=== PATIENT | female | born 1985 | race Caucasian/White ===

== ENCOUNTER 2021-04-05 09:20 | Emergency (ER) | payer OTHER, SELFPAY ==
--- NOTE | 2021-04-05 09:33 | DI.RAD.S_ITS ---
PROCEDURE: XR CHEST 1V INDICATIONS: cough TECHNIQUE: One view of the chest was acquired. COMPARISON: None. FINDINGS: Surgical changes and devices: None. Lungs and pleura: On this semiupright portable chest examination, no large pneumothorax or large pleural effusions are seen. No focal infiltrates are seen. Mediastinum: Mediastinal contours appear normal. Heart size is normal. Bones and chest wall: No suspicious bony lesions. Overlying soft tissues appear unremarkable. IMPRESSION: Portable chest within normal limits. Dictated by: Chris Kingsley M.D. on 04/05/2021 at 8:47 Approved by: Chris Kingsley M.D. on 04/05/2021 at 8:49
--- NOTE | 2021-04-05 09:35 | ED.GENADULT ---
HPI - General Adult General Chief complaint: Upper Respiratory Symptoms Stated complaint: CHEST COLD Time Seen by Provider: 04/05/21 09:26 History of Present Illness HPI narrative: 35-year-old woman with a history of mild intermittent asthma rarely needing an inhaler, history of a stroke-like event with concerns for hypercoagulability 2 years ago presents with a cough that is been present for 2 weeks and over the last 2 days has gotten worse with increasing chest tightness and now become productive. She describes no fevers, body aches, change to taste or smell, vomiting, diarrhea, abdominal pain, dysuria, flank pain, headaches. She is not complaining of nasal discharge sore throat or ear pain. She is concerned that she is developing a bacterial infection after 2 weeks of a viral syndrome. She has not been COVID tested and she is not COVID vaccinated. Related Data Home Medications Medication Instructions Recorded Confirmed [PROBIOTIC] 1 tab PO QDAY #0 09/17/16 biotin 800 mcg tablet 1 tab PO QDAY #0 09/17/16 ketorolac 60 mg/2 mL intramuscular 1 - 2 ml INJ QDAYP PRN #0 09/17/16 solution magnesium oxide 500 mg tablet 1,000 mg PO BID #0 09/17/16 metformin 500 mg tablet 500 mg PO BIDCC #0 09/17/16 (Glucophage) vitamin B complex (B 1 tab PO QDAY #0 09/17/16 Complex-Vitamin B12) zinc sulfate 50 mg zinc (220 mg) 220 mg PO QDAY #0 09/17/16 capsule Previous Rx's Medication Instructions Recorded albuterol sulfate 90 mcg/actuation 1 inh INHALATION QID PRN #6.7 g 04/05/21 aerosol inhaler azithromycin 250 mg tablet See Rx Instructions .ROUTE 04/05/21 .COMPLEX #6 tab Allergies Allergy/AdvReac Type Severity Reaction Status Date / Time tetracycline [TETRACYCLINE] Allergy Unknown Unverified 07/13/17 12:30 Review of Systems Review of Systems Narrative: Remainder of complete review of systems is otherwise unremarkable except for that included in the HPI. Patient History Medical History (Updated 04/05/21 @ 11:49 by Mila Martinez MD) Hypercoagulable state Migraine Mild intermittent asthma Social History Smoking Status: Never smoker Exam Narrative Exam Narrative: General: Healthy appearing, mild cough but Able to give a complete and coherent history. Well-nourished well-developed HEENT: Moist mucous membranes, normal sclera with reactive pupils, Neck: No cervical adenopathy supple Respiratory: Lungs bibasilar rhonchi left greater than right and scattered wheeze in all lung wallace. Full and symmetrical air movement. No accessory muscle use Cardiac: Mild tachycardia but otherwise Regular rate and rhythm no murmurs no bruits Abdomen: Soft, nontender, good bowel tones, no flank pain Skin: Warm and dry, no rashes Neurologic: Grossly neurologically intact with no obvious asymmetries or abnormalities Extremities: No trauma, well perfused Psych: Cooperative, appropriate insight and affect Initial Vital Signs Initial Vital Signs: Vital Signs Temperature 97.2 F L 04/05/21 09:51 Pulse Rate 97 H 04/05/21 09:51 Respiratory Rate 18 04/05/21 09:51 Blood Pressure 123/89 04/05/21 09:51 Pulse Oximetry 97 04/05/21 09:51 Course Orders Ordered: ED Orders 04/05/21 09:33 XR chest 1V Stat 04/05/21 09:50 COVID19 -Nasal swab/Pre-Proc Stat Complete Blood Count AUTO DIFF Stat Comprehensive Metabolic Panel Stat D Dimer Stat Discontinued Medications Albuterol/Ipratropium (Albuterol/Ipratropium 3 Ml Ampul) 3 ml INH NOW ONE Stop: 04/05/21 11:56 Sodium Chloride (Normal Saline 0.9%) 1,000 mls @ 1,000 mls/hr IV BOLUS ONE Stop: 04/05/21 10:32 Last Admin: 04/05/21 09:51 Dose: 1,000 mls/hr Documented by: YASMIN Methylprednisolone (Methylprednisolone 125 Mg/2 Ml Vial) 125 mg IV NOW ONE Stop: 04/05/21 09:34 Last Admin: 04/05/21 09:59 Dose: 125 mg Documented by: YASMIN Vital Signs Vital signs: Vital Signs - 8 hr 04/05/21 09:51 Temperature 97.2 F L Pulse Rate 97 H Respiratory Rate 18 Blood Pressure 123/89 Pulse Oximetry 97 Medical Decision Making Lab Data Result diagrams: 04/05/21 09:50 04/05/21 09:50 Labs: Lab Results 04/05/21 04/05/21 04/05/21 Range/Units 09:50 09:50 09:50 WBC 12.1 H (4.5-11.0) X10^3/uL RBC 4.62 (4.0-5.2) X10^6/uL Hgb 12.3 (12.0-16.0) g/dL Hct 37.9 (36-46) % MCV 82.1 (80-100) fL MCH 26.6 (26-34) PG MCHC 32.3 (30-36) % RDW 16.1 H (11.6-14.8) % Plt Count 543 H (150-400) X10^3/uL Neut % (Auto) 66.2 (50-75) % Lymph % (Auto) 21.7 L (25-40) % [place] % (Auto) 7.0 (3-14) % Eos % (Auto) 4.4 H (2-4) % Baso % (Auto) 0.7 (0-2) % Neut # (Auto) 8000 H (2991-4435) /uL Lymph # (Auto) 2600 (7749-3586) /uL [place] # (Auto) 800 (0-900) /uL Eos # (Auto) 500 H (0-450) /uL Baso # (Auto) 100 (0-100) /uL D-Dimer 338 H (<230) ng/mL Sodium 139 (137-145) mmol/L Potassium 3.6 (3.4-5.1) mmol/L Chloride 103 (98-107) mmol/L Carbon Dioxide 33 H (22-32) mmol/L BUN 8 (7-17) mg/dL Creatinine 0.76 (0.52-1.04) mg/dL Estimated GFR > 60.0 (>60) mL/min BUN/Creatinine Ratio 10.5 (6-22) Glucose 106 H (70-100) mg/dL Calcium 9.2 (8.4-10.2) mg/dL Total Bilirubin 0.5 (0.2-1.3) mg/dL AST 31 (14-36) IU/L ALT 41 H (<35) IU/L Alkaline Phosphatase 113 (38-126) U/L Total Protein 8.2 (6.3-8.2) g/dL Albumin 4.1 (3.5-5.0) g/dL Globulin 4.1 (1.7-4.1) g/dL Albumin/Globulin Ratio 1.0 (1.0-2.8) SARS-CoV-2 (PCR) (Negative) 04/05/21 Range/Units 09:50 WBC (4.5-11.0) X10^3/uL RBC (4.0-5.2) X10^6/uL Hgb (12.0-16.0) g/dL Hct (36-46) % MCV (80-100) fL MCH (26-34) PG MCHC (30-36) % RDW (11.6-14.8) % Plt Count (150-400) X10^3/uL Neut % (Auto) (50-75) % Lymph % (Auto) (25-40) % [place] % (Auto) (3-14) % Eos % (Auto) (2-4) % Baso % (Auto) (0-2) % Neut # (Auto) (3475-3722) /uL Lymph # (Auto) (2601-2020) /uL [place] # (Auto) (0-900) /uL Eos # (Auto) (0-450) /uL Baso # (Auto) (0-100) /uL D-Dimer (<230) ng/mL Sodium (137-145) mmol/L Potassium (3.4-5.1) mmol/L Chloride (98-107) mmol/L Carbon Dioxide (22-32) mmol/L BUN (7-17) mg/dL Creatinine (0.52-1.04) mg/dL Estimated GFR (>60) mL/min BUN/Creatinine Ratio (6-22) Glucose (70-100) mg/dL Calcium (8.4-10.2) mg/dL Total Bilirubin (0.2-1.3) mg/dL AST (14-36) IU/L ALT (<35) IU/L Alkaline Phosphatase (38-126) U/L Total Protein (6.3-8.2) g/dL Albumin (3.5-5.0) g/dL Globulin (1.7-4.1) g/dL Albumin/Globulin Ratio (1.0-2.8) SARS-CoV-2 (PCR) Negative (Negative) Point of Care Testing Test Results Negative Urine Dip Bedside Urine Glucose Negative Bedside Urine Bilirubin - Negative Bedside Urine Ketone - Negative Urine Specific [place] 1.015 Bedside Urine Occult Blood - Negative Bedside Urine pH 6.0 Bedside Urine Protein - Negative Bedside Urine Urobilinogen - Negative Bedside Urine Nitrite - Negative Bedside Urine Leukocytes - Negative Esterase Point of care testing: Point of Care Testing Test Results Negative Urine Dip Bedside Urine Glucose Negative Bedside Urine Bilirubin - Negative Bedside Urine Ketone - Negative Urine Specific [place] 1.015 Bedside Urine Occult Blood - Negative Bedside Urine pH 6.0 Bedside Urine Protein - Negative Bedside Urine Urobilinogen - Negative Bedside Urine Nitrite - Negative Bedside Urine Leukocytes - Negative Esterase Imaging Data Chest x-ray: My Impression: I think she is beginning to develop right lower lobe infiltrate consistent with her clinical presentation and physical exam Radiologist's Impression: FINDINGS:? ? Surgical changes and devices:? None.? ? Lungs and pleura:? On this semiupright portable chest examination, no large pneumothorax or large pleural effusions are seen.? No focal infiltrates are seen.? ? Mediastinum:? Mediastinal contours appear normal.? Heart size is normal.? ? Bones and chest wall:? No suspicious bony lesions.? Overlying soft tissues appear unremarkable.? ? IMPRESSION:? ? Portable chest within normal limits. ? ? ? Dictated by: Chris Kingsley M.D. on 04/05/2021 at 8:47 ? ? [facility] Narrative Medical decision making narrative: 35-year-old woman with 2 weeks of viral symptoms, COVID negative. Now with increasing cough, body aches fevers. Clinical exam suggests a developing right lower lobe pneumonia. She does so with steroids she frequently gets fairly tachycardic. At this point I think her main problem is a developing right lower lobe bacterial pneumonia with mild reactive airway disease. Will refill her albuterol MDI, will place her on azithromycin and she will be safe for home discharge. Her D-dimer was minimally elevated however her heart rate has come down nicely with a L of fluid. We discussed D-dimers and her symptoms. She is starting her menstrual cycle today and that could certainly explain the mild elevation. With shared decision making we opted to not proceed with CT scan of her chest but I clearly went over signs and symptoms of pulmonary embolism encouraged her to return and would have a low threshold for scanning her if she did. Discharge Plan Departure Patient Disposition: Home Clinical Impression: Pneumonia Qualifiers: Pneumonia type: due to unspecified organism Laterality: right Lung location: lower lobe of lung Qualified Code(s): J18.9 - Pneumonia, unspecified organism Instructions: DI for Pneumonia -- Adult Activity Restrictions/Additional Instructions: Thank you for coming in today I think that you are developing a right lower lobe bacterial pneumonia after 2 weeks of having a viral syndrome. You do not have COVID. I suspect the pneumonia is making her reactive airway disease a bit worse. I have given you a dose of steroids in the emergency department with because he you note that it makes you uncomfortable I do not think that you have enough wheezing that we need to continue oral steroids for the time being I am going to give you a prescription for azithromycin. I will refill your albuterol MDI. We discussed your slightly elevated D-dimer. We also briefly reviewed additional signs and symptoms of what a pulmonary embolism can look like. If you have worsening shortness of breath or feel that your heart is pounding or other symptoms please return and I would have a very low threshold for doing a CT scan of your chest at that time. I wish you the best Prescriptions: New azithromycin 250 mg tablet See Rx Instructions .ROUTE .COMPLEX Qty: 6 0RF Rx Instructions: For 250 mg dose pack: take 500 mg today (day 1), then 250 mg for 4 days (days 2-5) albuterol sulfate 90 mcg/actuation HFA aerosol inhaler 1 inh inhalation QID PRN (Reason: shortness of breath or wheezing) Qty: 6.7 1RF No Action magnesium oxide 500 MG tablet 1,000 mg PO BID Qty: 0 0RF metformin [Glucophage] 500 MG tablet 500 mg PO BIDCC Qty: 0 0RF ketorolac 60 MG/2 ML solution 1 - 2 ml INJ QDAYP PRNQty: 0 0RF [PROBIOTIC] 1 tab PO QDAY Qty: 0 0RF biotin 800 MCG tablet 1 tab PO QDAY Qty: 0 0RF vitamin B complex [B Complex-Vitamin B12] 1 EACH tablet 1 tab PO QDAY Qty: 0 0RF zinc sulfate 220 MG capsule 220 mg PO QDAY Qty: 0 0RF
[2021-04-05 09:51] VITALS: BP 123/89; PULSE 97; RESP 18; TEMP 36.2; O2SAT 97; BMI 36.8
[2021-04-05] MEDS: SODIUM CHLORIDE 0.9% 1,000 ML 1000 ML IV (09:51)
[2021-04-05] MEDS: methylPREDNISolone 125 MG/2 ML VIAL IV (09:59)
[2021-04-05 10:06] LABS: Add Manual Diff / Slide Review NO; Basophils Absolute Auto 100 /uL (0-100); Basophils Percent Auto 0.7 % (0-2); Eosinophils Absolute Auto 500 /uL (0-450); Eosinophils Percent Auto 4.4 % (2-4); Hematocrit 37.9 % (36-46); Hemoglobin 12.3 g/dL (12.0-16.0); Lymphocytes Absolute Auto 2600 /uL (1100-4500); Lymphocytes Percent Auto 21.7 % (25-40); Mean Corpuscular HGB Conc 32.3 % (30-36); Mean Corpuscular Hemoglobin 26.6 PG (26-34); Mean Corpuscular Volume 82.1 fL (80-100); Monocytes Absolute Auto 800 /uL (0-900); Neutrophils Absolute Auto 8000 /uL (1500-7000); Neutrophils Percent Auto 66.2 % (50-75); Platelet Count 543 X10^3/uL (150-400); Red Blood Cell Count 4.62 X10^6/uL (4.0-5.2); Red Cell Distribution Width 16.1 % (11.6-14.8); White Blood Cell Count 12.1 X10^3/uL (4.5-11.0)
[2021-04-05 10:20] LABS: Alanine Aminotransferase 41 IU/L (<35); Albumin 4.1 g/dL (3.5-5.0); Alkaline Phosphatase 113 U/L (38-126); Aspartate Aminotransferase 31 IU/L (14-36); BUN Creatinine Ratio 10.5 (6-22); Bilirubin Total 0.5 mg/dL (0.2-1.3); Blood Urea Nitrogen 8 mg/dL (7-17); COVID19 -Nasal RAPID Negative (Negative); Calcium 9.2 mg/dL (8.4-10.2); Carbon Dioxide 33 mmol/L (22-32); Chloride 103 mmol/L (98-107); Estimated Glomerular Filt Rate > 60.0 mL/min (>60); Globulin 4.1 g/dL (1.7-4.1); Glucose 106 mg/dL (70-100); HEMOLYSIS < 15 (0-50); Potassium 3.6 mmol/L (3.4-5.1); Sodium 139 mmol/L (137-145); Total Protein 8.2 g/dL (6.3-8.2)
[2021-04-05 10:23] LABS: D Dimer 338 ng/mL (<230)
[2021-04-05] MEDS: ALBUTEROL/IPRATROPIUM 3 ML AMPUL INH (12:00)
[2021-04-05 12:04] VITALS: PULSE 84; RESP 18; O2SAT 97
[2021-04-05 12:26] VITALS: BP 123/89; PULSE 88; RESP 16; O2SAT 97
== END 2021-04-05 12:30 | disposition home or self-care (01) ==
PROVIDERS: Emergency Provider Emergency Medicine
DX: J18.9 Pneumonia, unspecified organism (principal); Z20.822 Contact with and (suspected) exposure to COVID-19
CPT/HCPCS: 36415; 71045; 80053; 81003; 81025; 85025; 85379; 87635; 94640; 96361; 96374; 99284; C9803; J2930

== ENCOUNTER → 2021-05-12 08:44 | Outpatient (CLI) | payer OTHER, SELFPAY ==
[2021-05-12 09:36] LABS: Add Manual Diff / Slide Review NO; Basophils Absolute Auto 100 /uL (0-100); Basophils Percent Auto 0.9 % (0-2); Eosinophils Absolute Auto 300 /uL (0-450); Eosinophils Percent Auto 5.1 % (2-4); Hematocrit 37.4 % (36-46); Hemoglobin 12.4 g/dL (12.0-16.0); Lymphocytes Absolute Auto 1700 /uL (1100-4500); Mean Corpuscular HGB Conc 33.1 % (30-36); Mean Corpuscular Hemoglobin 27.6 PG (26-34); Mean Corpuscular Volume 83.3 fL (80-100); Monocytes Absolute Auto 400 /uL (0-900); Monocytes Percent Auto 6.2 % (3-14); Neutrophils Absolute Auto 3700 /uL (1500-7000); Neutrophils Percent Auto 60.8 % (50-75); Platelet Count 491 X10^3/uL (150-400); Red Blood Cell Count 4.49 X10^6/uL (4.0-5.2); Red Cell Distribution Width 16.4 % (11.6-14.8); White Blood Cell Count 6.1 X10^3/uL (4.5-11.0)
[2021-05-12 09:43] LABS: Hemoglobin A1C% w Est Avg Glu 5.8 % (4.0-6.0)
[2021-05-12 10:11] LABS: Alanine Aminotransferase 33 IU/L (<35); Albumin 4.1 g/dL (3.5-5.0); Albumin Globulin Ratio 1.1 (1.0-2.8); Alkaline Phosphatase 97 U/L (38-126); Aspartate Aminotransferase 44 IU/L (14-36); BUN Creatinine Ratio 14.1 (6-22); Bilirubin Total 0.3 mg/dL (0.2-1.3); Blood Urea Nitrogen 11 mg/dL (7-17); Calcium 9.2 mg/dL (8.4-10.2); Carbon Dioxide 30 mmol/L (22-32); Chloride 103 mmol/L (98-107); Cholesterol 199 mg/dL (140-199); Estimated Glomerular Filt Rate > 60.0 mL/min (>60); Globulin 3.7 g/dL (1.7-4.1); Glucose 104 mg/dL (70-100); HDL Cholesterol 41 mg/dL (40-60); HEMOLYSIS < 15 (0-50); LDL Cholesterol Calculated 139 mg/dL (<100); Potassium 3.8 mmol/L (3.4-5.1); Sodium 138 mmol/L (137-145); Total Protein 7.8 g/dL (6.3-8.2); Triglycerides 96 mg/dL (35-150)
[2021-05-16 20:41] LABS: Percent Free Testosterone 2.17 % (0.50-2.80); Testosterone Total 18.5 ng/dL (10.0-55.0)
== END ==
PROVIDERS: PCP Family Medicine; Referring Provider Family Medicine; Visit Provider Family Medicine
DX: E28.2 Polycystic ovarian syndrome (principal); F41.9 Anxiety disorder, unspecified; G43.909 Migraine, unspecified, not intractable, without status migrainosus
CPT/HCPCS: 36415; 80053; 80061; 82627; 83036; 84402; 84403; 85025

== ENCOUNTER 2022-05-08 21:25 | Emergency (ER) | payer OTHER, SELFPAY ==
[2022-05-08 21:31] VITALS: BP 129/68; PULSE 111; O2SAT 99
[2022-05-08 21:36] VITALS: BP 129/68; PULSE 105; RESP 18; TEMP 36.6; O2SAT 100; BMI 29.8
--- NOTE | 2022-05-08 21:42 | ED.NAVMDI ---
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 She presents today complaining of at least 36 hours of significant nausea vomiting unable to keep anything down. Feels that she is hot but has not measured a fever. Significant myalgias. Four days ago she started taking ferrous sulfate and has taken a total of 2 pills and is concerned this is what is causing her symptoms. Her symptoms seem much more significant than I would expect with 2 oral iron tablets. Related Data Home Medications Medication Instructions Recorded Confirmed magnesium oxide 500 mg tablet 1,000 mg PO BID ##0 09/17/16 05/07/21 Previous Rx's Medication Instructions Recorded albuterol sulfate 90 mcg/actuation 1 inh inhalation QID PRN shortness 04/05/21 aerosol inhaler of breath or wheezing #6.7 grams escitalopram oxalate 10 mg tablet 10 mg PO DAILY #90 tabs 09/10/21 (Lexapro) semaglutide 0.25 mg or 0.5 mg (2 0.25 mg (0.2 mL) SUBCUT QWEEK #1.5 09/10/21 mg/1.5 mL) subcutaneous pen mL injector (Ozempic) spironolactone 50 mg tablet 50 mg PO BID #90 tabs 09/10/21 ondansetron 4 mg disintegrating 4 mg PO Q8H PRN nausea and 05/09/22 tablet vomiting #10 tabs Allergies Allergy/AdvReac Type Severity Reaction Status Date / Time tetracycline [TETRACYCLINE] Allergy Unknown Hives Verified 05/08/22 21:46 prednisone Allergy Severe Palpitation Uncoded 05/08/22 21:46 s Review of Systems Review of Systems Narrative: Remainder of complete review of systems is otherwise unremarkable except for that included in the HPI. Patient History Medical History Hypercoagulable state Migraine Mild intermittent asthma Social History Smoking Status: Never smoker Smoking Status: Never smoker alcohol intake frequency: 0-2 drinks per day Substance Use Type: does not use Exam Initial Vital Signs Initial Vital Signs: Vital Signs Temperature 98 F 05/08/22 21:36 Pulse Rate 105 H 05/08/22 21:36 Respiratory Rate 18 05/08/22 21:36 Blood Pressure 129/68 05/08/22 21:36 Pulse Oximetry 100 05/08/22 21:36 Oxygen Delivery Method 05/08/22 21:36 General: Appears to feel unwell but in no acute distress. Able to give a complete and coherent history. Well-nourished well-developed HEENT: Dry mucous membranes, normal sclera with reactive pupils, Neck: No cervical adenopathy Respiratory: Lungs are clear to auscultation, no wheezing no rales no rhonchi. Full and symmetrical air movement Cardiac: Regular rate and rhythm no murmurs no bruits Abdomen: Soft, mild diffuse tenderness without rebound or guarding, good bowel tones, no flank pain Skin: Warm and dry, no rashes Neurologic: Grossly neurologically intact with no obvious asymmetries or abnormalities Extremities: No trauma, well perfused Psych: Cooperative, appropriate insight and affect Course Orders Ordered: ED Orders 05/08/22 21:39 Complete Blood Count AUTO DIFF Stat Comprehensive Metabolic Panel Stat 05/08/22 21:44 Stool Culture Stat 05/08/22 23:05 Urinalysis and Microscopic Stat Urine Culture Stat Sodium Chloride (Normal Saline 0.9%) 1,000 mls @ 1,000 mls/hr IV BOLUS ONE Stop: 05/09/22 01:04 Discontinued Medications Bupivacaine HCl (Bupivacaine 0.5% (Pf) 30 Ml Vial) 30 ml INJ INTRA-OP ONE Stop: 05/08/22 22:01 Last Admin: 05/08/22 22:18 Dose: Not Given Documented By: NR Sodium Chloride (Normal Saline 0.9%) 1,000 mls @ 1,000 mls/hr IV BOLUS ONE Stop: 05/08/22 22:59 Last Infusion: 05/08/22 22:59 Dose: 0 mls/hr Documented By: Admin: 05/08/22 22:05 Dose: 1,000 mls/hr Documented By: NR Ketorolac Tromethamine (Ketorolac 30 Mg/Ml Vial) 15 mg IV NOW ONE Stop: 05/09/22 00:17 Ondansetron HCl (Ondansetron 4 Mg/2 Ml Inj) 4 mg IV NOW ONE Stop: 05/08/22 21:44 Last Admin: 05/08/22 22:05 Dose: 4 mg Documented By: JACKI Ondansetron HCl (Ondansetron 4 Mg Odt Prepack) 1 bottle MISC SEEINSTR ONE Stop: 05/09/22 00:06 Vital Signs Vital signs: Vital Signs - 8 hr 05/08/22 21:36 Temperature 98 F Pulse Rate 105 H Respiratory Rate 18 Blood Pressure 129/68 Pulse Oximetry 100 Oxygen Delivery Method Room Air MDM - Nausea/Vomiting/Diarrhea Lab Data 05/08/22 21:39 05/08/22 21:39 Labs: Lab Results 05/08/22 05/08/22 05/08/22 Range/Units 21:39 21:39 23:05 WBC 7.5 (4.5-11.0) X10^3/uL RBC 4.68 (4.0-5.2) X10^6/uL Hgb 13.7 (12.0-16.0) g/dL Hct 40.7 (36-46) % MCV 86.9 (80-100) fL MCH 29.3 (26-34) PG MCHC 33.7 (30-36) % RDW 14.6 (11.6-14.8) % Plt Count 402 H (150-400) X10^3/uL Neut % (Auto) 81.7 H (50-75) % Lymph % (Auto) 10.0 L (25-40) % [place] % (Auto) 6.4 (3-14) % Eos % (Auto) 1.3 L (2-4) % Baso % (Auto) 0.6 (0-2) % Neut # (Auto) 6100 (0464-3095) /uL Lymph # (Auto) 700 L (6557-9920) /uL [place] # (Auto) 500 (0-900) /uL Eos # (Auto) 100 (0-450) /uL Baso # (Auto) 0 (0-100) /uL Sodium 138 (137-145) mmol/L Potassium 3.9 (3.4-5.1) mmol/L Chloride 101 (98-107) mmol/L Carbon Dioxide 25 (22-32) mmol/L BUN 8 (7-17) mg/dL Creatinine 0.83 (0.52-1.04) mg/dL Estimated GFR > 60 (>60) mL/min BUN/Creatinine Ratio 9.6 (6-22) Glucose 106 H (70-100) mg/dL Calcium 8.4 (8.4-10.2) mg/dL Total Bilirubin 0.4 (0.2-1.3) mg/dL AST 30 (14-36) IU/L ALT 27 (<35) IU/L Alkaline Phosphatase 99 (38-126) U/L Total Protein 7.8 (6.3-8.2) g/dL Albumin 4.2 (3.5-5.0) g/dL Globulin 3.6 (1.7-4.1) g/dL Albumin/Globulin Ratio 1.2 (1.0-2.8) Urine Color Yellow Urine Appearance Clear Urine pH 6.0 (4.5-8.0) Ur Specific [place] 1.010 (1.000-1.035) Urine Protein Negative (Negative) Urine Glucose (UA) Negative (Negative) g/dL Urine Ketones 1+ H (NEGATIVE) Urine Occult Blood Negative (Negative) Urine Nitrate Negative (Negative) Urine Bilirubin Negative (NEGATIVE) Urine Urobilinogen 0.2 (0.2) E.U./dL Ur Leukocyte Esterase 1+ H (NEGATIVE) Urine RBC None seen (0-5/HPF) Urine WBC 5-10/hpf H (0-5/HPF) Ur Squamous Epith Cells 10-30 /hpf H (0-5/HPF) Urine Bacteria Moderate (10-30) H (None) Urine Mucus 1+ H (Negative) Ur Culture Indicated? Specimen cultured Point of Care Testing Test Results Negative Urine Dip Bedside Urine Glucose 100 mg/dl Bedside Urine Ketone + 15 Urine Specific [place] 1.015 Bedside Urine Occult Blood - Negative Bedside Urine pH 6.0 Bedside Urine Protein - Negative Bedside Urine Urobilinogen - Negative Bedside Urine Nitrite - Negative Bedside Urine Leukocytes - Negative Esterase ECG Data Interpretation: Sinus tachycardia 111 Normal intervals, normal axis No acute ischemic changes MDM Narrative Medical decision making narrative: CC: Nausea, vomiting, myalgias. This is a new problem uncertain prognosis needs further evaluation Complicating co-morbidities: Recently started iron supplementation Corroborating data: Data collected from: patient, Medical records reviewed: Oncology notes, gynecology in primary care notes are all reviewed Differential considered: Viral syndrome, adverse reaction to medicine, bowel obstruction Exam documented above, pertinent findings include: Fairly benign exam with mild abdominal tenderness from vomiting Lab Test results independently reviewed as above. Pertinent findings: CBC is unremarkable with the exception of platelet count at 402 Chemistries are unremarkable Treatments: IV fluids, parenteral ondansetron, toradol Re-evaluations: 1209am patient's heart rate still remains somewhat elevated, she continues to complain of myalgias and arthralgias but notes the nausea is better and is willing to try some tawanda kathy. As she still remains tachycardic but afebrile will give her a 2 L of fluid. Will try adding some Toradol and see if this helps with the achiness. Discussion: 36-year-old woman who presents with nausea, vomiting, body aches and myalgias had been concerned that was due to recently started ferrous sulfate. Symptoms are far more consistent with a viral etiology. Nausea has been controlled she is able to keep liquids down at this point. She is been rehydrated and is feeling marginally better but continues to have significant arthralgias and myalgias. There is no evidence of bacterial infection, intra-abdominal obstruction or abscess. I am not concerned for pulmonary embolism. We discussed viral syndromes recommended ibuprofen and Tylenol for pain control continuing to stay well hydrated and returning if symptoms worsen. Disposition: see below, along with detailed discharge instructions that have been reviewed with patient as well as indications for ED re-evaluation and additional outpatient follow up Discharge Plan Departure Patient Disposition: Home Clinical Impression: Dehydration, Acute viral syndrome Nausea & vomiting Qualifiers: Vomiting type: unspecified Qualified Code(s): R11.2 - Nausea with vomiting, unspecified Instructions: DI for Viral Syndrome Activity Restrictions/Additional Instructions: Thank you for coming in today Your lab work is quite reassuring, you have responded nicely to 2 L of fluid as well as nausea medicine. I am not finding any evidence for a bacterial infection. I do not that think this is related to the recent iron tablets that you have started. Your urine did show some mild abnormalities but I suspect the culture will be negative. If your urine does grow and show a bladder infection, we will give you a call to start antibiotics. Using 400 mg of ibuprofen (2 [id number] pills) and 1 Tylenol every 6 hours can be very helpful in controlling pain. Please make sure you stay as hydrated as possible. I have given you a prescription for ondansetron/Zofran to use for nausea if the nausea does recur. The Zofran prescription was electronically transmitted to [facility] [place] in [place] If you find that you are getting worse or develop any new symptoms, please feel free to return to the emergency department for further evaluation. Prescriptions: New ondansetron 4 mg tablet,disintegrating 4 mg PO Q8H PRN (Reason: nausea and vomiting) Qty: 10 0RF No Action magnesium oxide 500 MG tablet 1,000 mg PO BID Qty: 0 escitalopram oxalate [Lexapro] 10 mg tablet 10 mg PO DAILY Qty: 90 0RF Ozempic 0.25 mg or 0.5 mg(2 mg/1.5 mL) pen injector 0.25 mg SUBCUT QWEEK Qty: 1.5 0RF Rx Instructions: pt uses a compound pharmacy and has an injection schedule. spironolactone 50 mg tablet 50 mg PO BID Qty: 90 3RF albuterol sulfate 90 mcg/actuation HFA aerosol inhaler 1 inh inhalation QID PRN (Reason: shortness of breath or wheezing) Qty: 6.7 1RF Referrals: Liu Paz MD [Primary Care Provider] - Stand Alone Forms: Patient Portal/API
[2022-05-08 21:55] LABS: Add Manual Diff / Slide Review NO; Basophils Absolute Auto 0 /uL (0-100); Basophils Percent Auto 0.6 % (0-2); Eosinophils Absolute Auto 100 /uL (0-450); Eosinophils Percent Auto 1.3 % (2-4); Hematocrit 40.7 % (36-46); Hemoglobin 13.7 g/dL (12.0-16.0); Lymphocytes Absolute Auto 700 /uL (1100-4500); Mean Corpuscular HGB Conc 33.7 % (30-36); Mean Corpuscular Hemoglobin 29.3 PG (26-34); Mean Corpuscular Volume 86.9 fL (80-100); Monocytes Absolute Auto 500 /uL (0-900); Monocytes Percent Auto 6.4 % (3-14); Neutrophils Absolute Auto 6100 /uL (1500-7000); Neutrophils Percent Auto 81.7 % (50-75); Platelet Count 402 X10^3/uL (150-400); Red Blood Cell Count 4.68 X10^6/uL (4.0-5.2); Red Cell Distribution Width 14.6 % (11.6-14.8); White Blood Cell Count 7.5 X10^3/uL (4.5-11.0)
[2022-05-08 22:00] VITALS: PULSE 116; RESP 17; O2SAT 94
[2022-05-08 22:02] LABS: Alanine Aminotransferase 27 IU/L (<35); Albumin 4.2 g/dL (3.5-5.0); Albumin Globulin Ratio 1.2 (1.0-2.8); Alkaline Phosphatase 99 U/L (38-126); Aspartate Aminotransferase 30 IU/L (14-36); BUN Creatinine Ratio 9.6 (6-22); Bilirubin Total 0.4 mg/dL (0.2-1.3); Blood Urea Nitrogen 8 mg/dL (7-17); Calcium 8.4 mg/dL (8.4-10.2); Carbon Dioxide 25 mmol/L (22-32); Chloride 101 mmol/L (98-107); Estimated Glomerular Filt Rate > 60 mL/min (>60); Globulin 3.6 g/dL (1.7-4.1); Glucose 106 mg/dL (70-100); HEMOLYSIS < 15 (0-50); Potassium 3.9 mmol/L (3.4-5.1); Sodium 138 mmol/L (137-145); Total Protein 7.8 g/dL (6.3-8.2)
[2022-05-08] MEDS: SODIUM CHLORIDE 0.9% 1,000 ML 1000 ML IV (22:05)
[2022-05-08] MEDS: ONDANSETRON 4 MG/2 ML INJ IV (22:05)
[2022-05-08 22:30] VITALS: PULSE 100; RESP 19; O2SAT 100
[2022-05-08 23:00] VITALS: PULSE 100; RESP 15; O2SAT 100
--- NOTE | 2022-05-08 23:16 | PC.NURSE ---
pt states she had lab work 4 days ago and was told her iron level is low and if she has any symptoms or is unable to keep her new iron pills down, she needs to come into the hospital. pt states 36hr ago, she started throwing up.
[2022-05-08 23:23] LABS: Appearance Urine UA CLEAR; Bilirubin Urine UA NEGATIVE (NEGATIVE); Color Urine UA YELLOW; Glucose Urine UA NEGATIVE (Negative); Ketones Urine UA 1+ (NEGATIVE); Leukocyte Esterase Urine UA 1+ (NEGATIVE); Nitrite Urine UA NEGATIVE (Negative); Occult Blood Urine UA NEGATIVE (Negative); Protein Urine UA NEGATIVE (Negative); Urobilinogen Urine UA 0.2 E.U./dL (0.2)
[2022-05-08 23:30] VITALS: PULSE 100; RESP 15; O2SAT 100
[2022-05-08 23:30] LABS: Bacteria Urine Moderate (10-30); RBC Urine None Seen (0-5/HPF); Squamous Epithelial Cell Urine 10-30 /HPF (0-5/HPF); WBC Urine 5-10/HPF (0-5/HPF)
[2022-05-08 23:31] LABS: Culture Indicated Urine Specimen Cultured; Mucus Urine 1+ (Negative)
[2022-05-09] VITALS: PULSE 108; RESP 15; O2SAT 98
[2022-05-09 00:30] VITALS: PULSE 99; RESP 13; O2SAT 99
[2022-05-09 00:38] VITALS: BP 113/71; PULSE 100; RESP 19; O2SAT 100
[2022-05-09] MEDS: SODIUM CHLORIDE 0.9% 1,000 ML 1000 ML IV (00:42)
[2022-05-09] MEDS: KETOROLAC 30 MG/ML VIAL 15 MG IV (00:42)
[2022-05-09] MEDS: ONDANSETRON 4 MG ODT PREPACK 1 BOTTLE MISC (00:42)
[2022-05-09 01:00] VITALS: PULSE 96; RESP 19; O2SAT 98
[2022-05-09 01:30] VITALS: PULSE 93; RESP 18; O2SAT 97
[2022-05-09 02:00] VITALS: BP 113/71; PULSE 91; RESP 15; O2SAT 95
== END 2022-05-09 02:12 | disposition home or self-care (01) ==
PROVIDERS: Emergency Provider Emergency Medicine; PCP Family Medicine
DX: E86.0 Dehydration (principal); R11.2 Nausea with vomiting, unspecified; B34.9 Viral infection, unspecified
CPT/HCPCS: 36415; 80053; 81001; 81003; 81025; 85025; 87086; 93005; 93010; 96361; 96374; 96375; 99284; J1885; J2405

== ENCOUNTER → 2022-11-25 11:43 | Outpatient (CLI) | payer OTHER, SELFPAY ==
[2022-11-25 13:03] LABS: Glucose 88 mg/dL (70-100)
--- NOTE | 2022-11-25 13:16 | DI.MRI.S_ITS ---
PROCEDURE: MR HEAD/BRAIN WO CON INDICATIONS: Residual deficits from CVA and chronic headache TECHNIQUE: Noncontrast axial T1 spin echo, axial T2 fast spin echo, sagittal and axial FLAIR, coronal T2 fast spin echo, axial gradient echo, axial diffusion and ADC through the brain. COMPARISON: None. FINDINGS: Image quality: Excellent. CSF Spaces: Basal cisterns are patent. No extra-axial fluid collections. Ventricles are normal in size and shape. Brain: No intracranial masses or hemorrhage. Jamison/white matter interface is normal. Brainstem appears normal. Diffusion-weighted images demonstrate no acute ischemic insult. No prior territorial infarct can be seen. Normal intravascular flow voids are present. Skull and face: Calvarium has normal marrow signal. Orbits appear normal. Sinuses: Sinuses and mastoids are clear. IMPRESSION: No prior territorial infarct can be seen. No findings of acute or subacute infarction can be seen. Dictated by: Chris Kingsley M.D. on 11/25/2022 at 13:44 Approved by: Chris Kingsley M.D. on 11/25/2022 at 13:45
[2022-11-25 14:23] LABS: Appearance Urine UA CLEAR; Bilirubin Urine UA NEGATIVE (NEGATIVE); Color Urine UA YELLOW; Glucose Urine UA NEGATIVE (Negative); Ketones Urine UA NEGATIVE (NEGATIVE); Leukocyte Esterase Urine UA NEGATIVE (NEGATIVE); Nitrite Urine UA NEGATIVE (Negative); Occult Blood Urine UA NEGATIVE (Negative); Protein Urine UA NEGATIVE (Negative); Specific Gravity Urine UA 1.015 (1.000-1.035)
[2022-11-25 14:35] LABS: pH Urine UA 7.5 (4.5-8.0)
[2022-11-25 14:38] LABS: Bacteria Urine Moderate (10-30); Culture Indicated Urine Specimen Cultured; RBC Urine 0-1/HPF (0-5/HPF); Squamous Epithelial Cell Urine 5-10 /HPF (0-5/HPF); WBC Urine 1-5/HPF (0-5/HPF)
[2022-11-25 15:25] LABS: Creatinine Urine Random 260.6 mg/dL
[2022-11-25 15:29] LABS: Microalbumi Creatinin Ratio Ur 2.6 ug/mg CR (<30); Microalbumin Urine Random 0.7 mg/dL (0-1.6)
[2022-11-25 16:23] LABS: HIV 1 & 2 Ab/Ag 4th Gen Combo NEGATIVE (NEGATIVE); Hep C Virus Ab w/Reflex Quant NEGATIVE s/c (NEGATIVE)
== END ==
PROVIDERS: Family Provider Family Medicine; PCP Family Medicine; Referring Provider Family Medicine; Visit Provider Family Medicine
DX: G43.909 Migraine, unspecified, not intractable, without status migrainosus (principal); I69.30 Unspecified sequelae of cerebral infarction; E11.9 Type 2 diabetes mellitus without complications; E88.81 Metabolic syndrome and other insulin resistance; R03.0 Elevated blood-pressure reading, without diagnosis of hypertension; Z11.3 Encounter for screening for infections with a predominantly sexual mode of transmission
CPT/HCPCS: 36415; 70551; 81001; 82043; 82570; 82947; 86803; 87086; 87389

== ENCOUNTER 2022-12-16 10:45 | Outpatient (RCR) | payer OTHER, SELFPAY ==
--- NOTE | 2022-10-28 12:10 | PT.OIE ---
Current Diagnoses Unspecified sequelae of cerebral infarction (10/28/22) Past Medical History (Last Updated 07/07/22 @ 10:33 by Liu Paz MD) Adenomyosis Hypercoagulable state Insulin resistance Migraine Mild intermittent asthma Past Surgical History (Last Updated 07/07/22 @ 10:33 by Liu Paz MD) H/O: hysterectomy Visit Care Team Role Provider Type Liu Paz MD Attending Provider Physician Family Provider Primary Care Provider Referring Provider Specialty: Family Practice Address: [address] [place] [address], [facility] Email: [email or web address] Physical Therapy Initial Evaluation PT-OP-A Visit Information Start: 10/28/22 11:05 Freq: Status: Active Protocol: Document 10/28/22 11:12 ED (Rec: 10/28/22 12:10 ED [id number]) Out-Patient Physical Therapy Visit Information Visit Information Visit Type Initial Evaluation Visit Note 0/12 (only allowed 12 visits) Visit Start Time 11:30 Visit Stop Time 12:15 Total Visit Minutes 45 Visit Number 1 Number of CLINICAL DIETICIAN Visits 0 Evaluation Information Evaluation Date 10/28/22 PT-OP-B Current Condition Start: 10/28/22 11:05 Freq: Status: Active Protocol: Document 10/28/22 11:12 ED (Rec: 10/28/22 12:10 ED [id number]) Current Condition History of Current Condition Current Complaints poor motor planning History of Current Condition Pt states that she had a stroke in 2019 and notes that there is a delay in what she wants to do and then the motor firing for it to actually occur. She states it was a R side CVA but she had R sided deficits as opposed to L sided deficits. Additionally, she states that her balance is terrible. She states that she falls a lot and she sways when she stands; she tends to stand with a wide Alicia when standing. She denies having any physical therapy after her CVA. She states she used to run but no longer can. She has aspirations of returning to running. She has a physioball and tennis balls at home. She states that her R foot is the most problematic; she notices poor motor planning for her R LE especially on stairs. She states she walks about 30-60 minutes/day. Treatment Goals Patient/Caregiver Goals Improve coordination and get back to running (5k by next year) PT-OP-C Subjective Start: 10/28/22 11:05 Freq: Status: Active Protocol: Document 10/28/22 11:12 ED (Rec: 10/28/22 12:10 ED [id number]) OP-PT Pain Assessment Comments Pain Comments denies requiring PT for pain. States she doesn't have much pain during day to day activities PT-OP-D Balance Start: 10/28/22 11:05 Freq: Status: Active Protocol: Document 10/28/22 11:12 ED (Rec: 10/28/22 12:10 ED [id number]) Balance Tests Single Limb Standing Single Limb- Right <10 seconds Single Limb- Left >10 seconds PT-OP-E Functional Tests Start: 10/28/22 11:05 Freq: Status: Active Protocol: Document 10/28/22 11:12 ED (Rec: 10/28/22 12:10 ED [id number]) Functional Tests 30 Second Sit to Stand Test Score 14 Comments favored L side Single Leg Squat Test Comment unable to perform single leg squat to/from table for R LE PT-OP-T Assessment and Plan Start: 10/28/22 11:05 Freq: Status: Active Protocol: Document 10/28/22 11:12 ED (Rec: 10/28/22 12:10 ED [id number]) Physical Therapy Assessment Rehab Potential Rehabilitation Potential Good Evaluation Complexity Number of Personal Factors/Comorbidities 1-2 Number of Body Systems Impaired 3 Clinical Presentation at Evaluation Stable Impairments Impairments Activity Tolerance,Balance, Coordination,Functional Mobility,Strength Goals Four Impairment cardio Short Term Goal (STG) Pt will be able to walk on TM at >10% incline for 10 minutes . STG Duration 2 weeks Group Home Goal (LTG) Pt will be able to slow jog for 10 minutes comfortably. LTG Duration 6 weeks Three Impairment impact activities Short Term Goal (STG) Pt will be able to perform pogos for 30 seconds on both legs comfortably. STG Duration 2 weeks. Tuna Purse Seiner Goal (LTG) Pt will be able to perform drop jump from 6-8'' height comfortably. LTG Duration 6 weeks Two Impairment unilateral strength Short Term Goal (STG) Pt will be able to perform 10 single leg hip bridges for R LE. STG Duration 2 weeks Tuna Purse Seiner Goal (LTG) Pt will be able to perform split squat w/ R LE forward. LTG Duration 6 weeks. One Impairment HEP Short Term Goal (STG) Pt will report performing HEP >4 days/week. STG Duration 2 weeks Tuna Purse Seiner Goal (LTG) Pt will report performing HEP >4 days/week. LTG Duration 6 weeks Assessment Summary Assessment Pt reported to PT w/ complaints of poor motor coordination and R Sided strength deficits after having a CVA in 2019. Pt stated her goal was to be able to run and have better symmetry in regards to muscle strength of L vs R side. Pt able to perform all functional activities well but she did demonstrate increased difficulty when exercises were performed unilaterally such as single leg balance, single leg squat, and single leg hip bridges. PT provided patient initial HEP of: sit<>stands, staggered sit<>stands, hip bridge, single leg hip bridge, heel raise, single leg heel raise, and pogo jumps. Pt able to perform all exercises today comfortably. PT informed patient that she will likely have to continue w/ her exercises as she has a finite amount of PT visits alloted each year. Physical Therapy Plan Frequency and Duration Frequency of Treatment 2x/Week Duration of treatment (weeks) 8 Plan of Care Start Date 10/28/22 Plan of Care End Date 01/26/23 Therapeutic Interventions Therapeutic Interventions Balance Training,Gait Training ,Home Exercise Program,Manual Therapy,Neuromuscular Re- education,Patient/Caregiver Education,Therapeutic Activities,Therapeutic Exercises Modalities Electric Stimulation,Hot Packs Next Visit Focus/Plan Next Note Type Treatment Note Next Visit Plan TM walk, review HEP (squat, staggered squat, bridge, staggered bridge, heel raise, unilateral heel raise, pogos), step up variations, single leg balance
--- NOTE | 2022-10-28 12:10 | PT.OPPOC ---
Physical, Occupational & Speech Therapy At [facility] Current Diagnoses Unspecified sequelae of cerebral infarction (10/28/22) Visit Care Team Role Provider Type Liu Paz MD Attending Provider Physician Family Provider Primary Care Provider Referring Provider Specialty: Family Practice Address: [address] [place] [address], [facility] Email: [email or web address] Plan Of Care PT-OP-T Assessment and Plan Start: 10/28/22 11:05 Freq: Status: Active Protocol: Document 10/28/22 11:12 ED (Rec: 10/28/22 12:10 ED [id number]) Physical Therapy Assessment Rehab Potential Rehabilitation Potential Good Evaluation Complexity Number of Personal Factors/Comorbidities 1-2 Number of Body Systems Impaired 3 Clinical Presentation at Evaluation Stable Impairments Impairments Activity Tolerance,Balance, Coordination,Functional Mobility,Strength Goals Four Impairment cardio Short Term Goal (STG) Pt will be able to walk on TM at >10% incline for 10 minutes . STG Duration 2 weeks Cloth Bolt Bander Goal (LTG) Pt will be able to slow jog for 10 minutes comfortably. LTG Duration 6 weeks Three Impairment impact activities Short Term Goal (STG) Pt will be able to perform pogos for 30 seconds on both legs comfortably. STG Duration 2 weeks. Cloth Bolt Bander Goal (LTG) Pt will be able to perform drop jump from 6-8'' height comfortably. LTG Duration 6 weeks Two Impairment unilateral strength Short Term Goal (STG) Pt will be able to perform 10 single leg hip bridges for R LE. STG Duration 2 weeks [facility] Goal (LTG) Pt will be able to perform split squat w/ R LE forward. LTG Duration 6 weeks. One Impairment HEP Short Term Goal (STG) Pt will report performing HEP >4 days/week. STG Duration 2 weeks Cloth Bolt Bander Goal (LTG) Pt will report performing HEP >4 days/week. LTG Duration 6 weeks Assessment Summary Assessment Pt reported to PT w/ complaints of poor motor coordination and R Sided strength deficits after having a CVA in 2019. Pt stated her goal was to be able to run and have better symmetry in regards to muscle strength of L vs R side. Pt able to perform all functional activities well but she did demonstrate increased difficulty when exercises were performed unilaterally such as single leg balance, single leg squat, and single leg hip bridges. PT provided patient initial HEP of: sit<>stands, staggered sit<>stands, hip bridge, single leg hip bridge, heel raise, single leg heel raise, and pogo jumps. Pt able to perform all exercises today comfortably. PT informed patient that she will likely have to continue w/ her exercises as she has a finite amount of PT visits alloted each year. Physical Therapy Plan Frequency and Duration Frequency of Treatment 2x/Week Duration of treatment (weeks) 8 Plan of Care Start Date 10/28/22 Plan of Care End Date 01/26/23 Therapeutic Interventions Therapeutic Interventions Balance Training,Gait Training ,Home Exercise Program,Manual Therapy,Neuromuscular Re- education,Patient/Caregiver Education,Therapeutic Activities,Therapeutic Exercises Modalities Electric Stimulation,Hot Packs Next Visit Focus/Plan Next Note Type Treatment Note Next Visit Plan TM walk, review HEP (squat, staggered squat, bridge, staggered bridge, heel raise, unilateral heel raise, pogos), step up variations, single leg balance Plan of Care Dates Plan of Care Start Date 10/28/22 Plan of Care End Date 01/26/23 Electronically Signed by: Jose Sterling, PT 10/28/22 1210 If you are in agreement with this Plan of Care, please return a signed and dated copy. I have reviewed this Plan of Care and certify that the skilled therapy services above are required to meet the patient?s needs. Physician Signature Date Printed Name and Credentials Clinical Instructor Signature Printed Name and Credentials
--- NOTE | 2022-11-03 12:18 | PT.OTN ---
Current Diagnoses Unspecified sequelae of cerebral infarction (11/03/22) Physical Therapy Treatment Note PT-OP-A Visit Information Start: 10/28/22 11:05 Freq: Status: Active Protocol: Document 11/03/22 12:12 ED (Rec: 11/03/22 12:18 ED [id number]) Out-Patient Physical Therapy Visit Information Visit Information Visit Type Treatment Note Visit Note 04/15 Visit Start Time 11:30 Visit Stop Time 12:10 Total Visit Minutes 40 Visit Number 2 Number of CAN FILLING ROOM SWEEPER Visits 0 PT-OP-B Current Condition Start: 10/28/22 11:05 Freq: Status: Active Protocol: Document 10/28/22 11:12 ED (Rec: 10/28/22 12:10 ED [id number]) Current Condition History of Current Condition Current Complaints poor motor planning History of Current Condition Pt states that she had a stroke in 2019 and notes that there is a delay in what she wants to do and then the motor firing for it to actually occur. She states it was a R side CVA but she had R sided deficits as opposed to L sided deficits. Additionally, she states that her balance is terrible. She states that she falls a lot and she sways when she stands; she tends to stand with a wide Alicia when standing. She denies having any physical therapy after her CVA. She states she used to run but no longer can. She has aspirations of returning to running. She has a physioball and tennis balls at home. She states that her R foot is the most problematic; she notices poor motor planning for her R LE especially on stairs. She states she walks about 30-60 minutes/day. Treatment Goals Patient/Caregiver Goals Improve coordination and get back to running (5k by next year) PT-OP-C Subjective Start: 10/28/22 11:05 Freq: Status: Active Protocol: Document 11/03/22 12:12 ED (Rec: 11/03/22 12:18 ED [id number]) OP-PT Subjective Patient Comments Patient Comments Pt states that she did her HEP a few times but didn't do much of the staggered STS or pogos. She is looking forward to exercising and improving her functional mobility. PT-OP-D Balance Start: 10/28/22 11:05 Freq: Status: Active Protocol: Document 10/28/22 11:12 ED (Rec: 10/28/22 12:10 ED [id number]) Balance Tests Single Limb Standing Single Limb- Right <10 seconds Single Limb- Left >10 seconds PT-OP-E Functional Tests Start: 10/28/22 11:05 Freq: Status: Active Protocol: Document 10/28/22 11:12 ED (Rec: 10/28/22 12:10 ED [id number]) Functional Tests 30 Second Sit to Stand Test Score 14 Comments favored L side Single Leg Squat Test Comment unable to perform single leg squat to/from table for R LE PT-OP-Q Treatments Start: 10/28/22 11:05 Freq: Status: Active Protocol: Document 11/03/22 12:12 ED (Rec: 11/03/22 12:18 ED [id number]) Cardio Equipment Treadmill Duration (Minutes) 15 Speed 2.0 Incline 1 Other 5' fwd & 5' bkwd; 5' at incline of 8.0 at end Therapeutic Exercises Standing Exercises pogos Reps/Minutes 3x10'' on 10'' off Comments UE support on bar heel raise Standing Exercise Name standing Reps/Minutes 1x20 Therapeutic Activity Therapeutic Activity split squat Reps/Minutes 2x10 Comments 2 foam pads and UE support for balance squat Name squat Reps/Minutes [id number] Comments staggered position for R LE bias Neuro Re-Education Treatment Balance Activities dynamic balance Details fwd/bkwd toe taps Reps/Duration 2x10/leg Comments ~8'' fwd/bkwd taps PT-OP-T Assessment and Plan Start: 10/28/22 11:05 Freq: Status: Active Protocol: Document 11/03/22 12:12 ED (Rec: 11/03/22 12:18 ED [id number]) Physical Therapy Assessment Assessment Summary Assessment Pt tolerated treatment well which included balance, reaction timing, and strengthening activities. Incorporated split squats and pogos today as progressions of her sit<>stands and heel raises that she was given at initial evaluation. Ended session c/ an inclined TM walk (8% incline) to improve work capacity and activity tolerance. Physical Therapy Plan Next Visit Focus/Plan Next Note Type Treatment Note Next Visit Plan TM walk (fwd/bkwd), pogos, bridge (walkouts), split squat , LAQ, TM incline walk HEP (squat, staggered squat, bridge, staggered bridge, heel raise, unilateral heel raise, pogos)
--- NOTE | 2022-11-05 12:15 | PT.OTN ---
Current Diagnoses Unspecified sequelae of cerebral infarction (11/05/22) Physical Therapy Treatment Note PT-OP-A Visit Information Start: 10/28/22 11:05 Freq: Status: Active Protocol: Document 11/05/22 12:10 ED (Rec: 11/05/22 12:15 ED [id number]) Out-Patient Physical Therapy Visit Information Visit Information Visit Type Treatment Note Visit Note 05/16 Visit Start Time 11:30 Visit Stop Time 12:10 Total Visit Minutes 40 Visit Number 3 Number of RIBBON LAP MACHINE TENDER Visits 0 PT-OP-B Current Condition Start: 10/28/22 11:05 Freq: Status: Active Protocol: Document 10/28/22 11:12 ED (Rec: 10/28/22 12:10 ED [id number]) Current Condition History of Current Condition Current Complaints poor motor planning History of Current Condition Pt states that she had a stroke in 2019 and notes that there is a delay in what she wants to do and then the motor firing for it to actually occur. She states it was a R side CVA but she had R sided deficits as opposed to L sided deficits. Additionally, she states that her balance is terrible. She states that she falls a lot and she sways when she stands; she tends to stand with a wide Alicia when standing. She denies having any physical therapy after her CVA. She states she used to run but no longer can. She has aspirations of returning to running. She has a physioball and tennis balls at home. She states that her R foot is the most problematic; she notices poor motor planning for her R LE especially on stairs. She states she walks about 30-60 minutes/day. Treatment Goals Patient/Caregiver Goals Improve coordination and get back to running (5k by next year) PT-OP-C Subjective Start: 10/28/22 11:05 Freq: Status: Active Protocol: Document 11/05/22 12:10 ED (Rec: 11/05/22 12:15 ED [id number]) OP-PT Subjective Patient Comments Patient Comments Pt notes that she was sore in her legs yesterday but is feeling back to normal today. Denies any activity limiting fatigue from increasing her weekly exercise volume. PT-OP-D Balance Start: 10/28/22 11:05 Freq: Status: Active Protocol: Document 10/28/22 11:12 ED (Rec: 10/28/22 12:10 ED [id number]) Balance Tests Single Limb Standing Single Limb- Right <10 seconds Single Limb- Left >10 seconds PT-OP-E Functional Tests Start: 10/28/22 11:05 Freq: Status: Active Protocol: Document 10/28/22 11:12 ED (Rec: 10/28/22 12:10 ED [id number]) Functional Tests 30 Second Sit to Stand Test Score 14 Comments favored L side Single Leg Squat Test Comment unable to perform single leg squat to/from table for R LE PT-OP-Q Treatments Start: 10/28/22 11:05 Freq: Status: Active Protocol: Document 11/05/22 12:10 ED (Rec: 11/05/22 12:15 ED [id number]) Cardio Equipment Bicycle (Upright) Duration (Minutes) 6 Resistance L4 Treadmill Duration (Minutes) 15 Speed 2.0 Incline 9 Other 15' at end for activity tolerance and work capacity Therapeutic Exercises Supine Exercises bridge variations Reps/Minutes 2x10 Comments normal bridge, straight leg bridge, bridge walkouts Standing Exercises fwd hops Reps/Minutes 4x5-8 hops pogos Reps/Minutes 3x10'' on 10'' off Comments UE support on bar Therapeutic Activity Therapeutic Activity step up Reps/Minutes [id number]/leg Comments 18'' box no UE assistance PT-OP-T Assessment and Plan Start: 10/28/22 11:05 Freq: Status: Active Protocol: Document 11/05/22 12:10 ED (Rec: 11/05/22 12:15 ED [id number]) Physical Therapy Assessment Assessment Summary Assessment Pt tolerated treatment well which included balance, reaction timing, and strengthening activities. Incorporated high step ups, pogos, and fwd hops today as progressions of her sit<> stands and heel raises that she was given at initial evaluation. Ended session c/ an inclined TM walk to improve work capacity and activity tolerance. Physical Therapy Plan Frequency and Duration Frequency of Treatment 2x/Week Duration of treatment (weeks) 8 Plan of Care Start Date 10/28/22 Plan of Care End Date 01/26/23 Next Visit Focus/Plan Next Note Type Treatment Note Next Visit Plan bike, bridge variations, pogos , fwd hops/lateral hops, split squat, LAQ, hamstring curl, incline TM
--- NOTE | 2022-11-10 13:37 | PT.OTN ---
Current Diagnoses Unspecified sequelae of cerebral infarction (11/10/22) Physical Therapy Treatment Note PT-OP-A Visit Information Start: 10/28/22 11:05 Freq: Status: Active Protocol: Document 11/10/22 13:32 ED (Rec: 11/10/22 13:37 ED [id number]) Out-Patient Physical Therapy Visit Information Visit Information Visit Type Treatment Note Visit Note 06/13 Visit Start Time 12:45 Visit Stop Time 13:30 Total Visit Minutes 45 Visit Number 4 Number of WILLOW MACHINE TENDER Visits 0 PT-OP-B Current Condition Start: 10/28/22 11:05 Freq: Status: Active Protocol: Document 10/28/22 11:12 ED (Rec: 10/28/22 12:10 ED [id number]) Current Condition History of Current Condition Current Complaints poor motor planning History of Current Condition Pt states that she had a stroke in 2019 and notes that there is a delay in what she wants to do and then the motor firing for it to actually occur. She states it was a R side CVA but she had R sided deficits as opposed to L sided deficits. Additionally, she states that her balance is terrible. She states that she falls a lot and she sways when she stands; she tends to stand with a wide Alicia when standing. She denies having any physical therapy after her CVA. She states she used to run but no longer can. She has aspirations of returning to running. She has a physioball and tennis balls at home. She states that her R foot is the most problematic; she notices poor motor planning for her R LE especially on stairs. She states she walks about 30-60 minutes/day. Treatment Goals Patient/Caregiver Goals Improve coordination and get back to running (5k by next year) PT-OP-C Subjective Start: 10/28/22 11:05 Freq: Status: Active Protocol: Document 11/10/22 13:32 ED (Rec: 11/10/22 13:37 ED [id number]) OP-PT Subjective Patient Comments Patient Comments Pt states that she has been feeling pretty good after her PT sessions. Denies any significant pain or soreness afterwards. Is noticing improvements in her balance and strength. PT-OP-D Balance Start: 10/28/22 11:05 Freq: Status: Active Protocol: Document 10/28/22 11:12 ED (Rec: 10/28/22 12:10 ED [id number]) Balance Tests Single Limb Standing Single Limb- Right <10 seconds Single Limb- Left >10 seconds PT-OP-E Functional Tests Start: 10/28/22 11:05 Freq: Status: Active Protocol: Document 10/28/22 11:12 ED (Rec: 10/28/22 12:10 ED [id number]) Functional Tests 30 Second Sit to Stand Test Score 14 Comments favored L side Single Leg Squat Test Comment unable to perform single leg squat to/from table for R LE PT-OP-Q Treatments Start: 10/28/22 11:05 Freq: Status: Active Protocol: Document 11/10/22 13:32 ED (Rec: 11/10/22 13:37 ED [id number]) Cardio Equipment Treadmill Duration (Minutes) 15 Speed 2.0 Incline 9 Other 15' at end for activity tolerance and work capacity Therapeutic Exercises Supine Exercises bridge variations Reps/Minutes 2x10 Comments normal bridge, straight leg bridge, bridge walkouts Sitting Exercises hamstring curl Resistance L2-3 Reps/Minutes 2x15 LAQ Resistance L2-3 Reps/Minutes 2x15 Standing Exercises fwd hops Reps/Minutes 4x5-8 hops pogos Reps/Minutes 3x10'' on 10'' off Comments UE support on bar Therapeutic Activity Therapeutic Activity wall squat Reps/Minutes x45 seconds Comments accompanied with heel raises split squat Reps/Minutes 2x10 Comments 1 foam pads and UE support for balance Neuro Re-Education Treatment Balance Activities dynamic balance Details fwd/bkwd toe taps Reps/Duration 2x10/leg Comments ~8'' fwd/bkwd taps PT-OP-T Assessment and Plan Start: 10/28/22 11:05 Freq: Status: Active Protocol: Document 11/10/22 13:32 ED (Rec: 11/10/22 13:37 ED [id number]) Physical Therapy Assessment Assessment Summary Assessment Pt continuing to do well with PT exercises. Pt has incorporated balance and strengthening movements for LEs. PT is slowly progressing exercises so patient is starting to perform more total volume during the sessions.
--- NOTE | 2022-11-18 09:54 | PT.OTN ---
Current Diagnoses Unspecified sequelae of cerebral infarction (11/18/22) Physical Therapy Treatment Note PT-OP-A Visit Information Start: 10/28/22 11:05 Freq: Status: Active Protocol: Document 11/18/22 09:49 ED (Rec: 11/18/22 09:54 ED [id number]) Out-Patient Physical Therapy Visit Information Visit Information Visit Type Treatment Note Visit Note 07/14 Visit Start Time 09:00 Visit Stop Time 09:45 Total Visit Minutes 45 Visit Number 5 Number of CARRIER LOADER Visits 0 PT-OP-B Current Condition Start: 10/28/22 11:05 Freq: Status: Active Protocol: Document 10/28/22 11:12 ED (Rec: 10/28/22 12:10 ED [id number]) Current Condition History of Current Condition Current Complaints poor motor planning History of Current Condition Pt states that she had a stroke in 2019 and notes that there is a delay in what she wants to do and then the motor firing for it to actually occur. She states it was a R side CVA but she had R sided deficits as opposed to L sided deficits. Additionally, she states that her balance is terrible. She states that she falls a lot and she sways when she stands; she tends to stand with a wide Alicia when standing. She denies having any physical therapy after her CVA. She states she used to run but no longer can. She has aspirations of returning to running. She has a physioball and tennis balls at home. She states that her R foot is the most problematic; she notices poor motor planning for her R LE especially on stairs. She states she walks about 30-60 minutes/day. Treatment Goals Patient/Caregiver Goals Improve coordination and get back to running (5k by next year) PT-OP-C Subjective Start: 10/28/22 11:05 Freq: Status: Active Protocol: Document 11/18/22 09:49 ED (Rec: 11/18/22 09:54 ED [id number]) OP-PT Subjective Patient Comments Patient Comments Pt states she has been doing a little bit of the exercises at home. Notes that next week she may be more tired as she is having an iron infusion and that typically makes her a little more fatigued. PT-OP-D Balance Start: 10/28/22 11:05 Freq: Status: Active Protocol: Document 10/28/22 11:12 ED (Rec: 10/28/22 12:10 ED [id number]) Balance Tests Single Limb Standing Single Limb- Right <10 seconds Single Limb- Left >10 seconds PT-OP-E Functional Tests Start: 10/28/22 11:05 Freq: Status: Active Protocol: Document 10/28/22 11:12 ED (Rec: 10/28/22 12:10 ED [id number]) Functional Tests 30 Second Sit to Stand Test Score 14 Comments favored L side Single Leg Squat Test Comment unable to perform single leg squat to/from table for R LE PT-OP-Q Treatments Start: 10/28/22 11:05 Freq: Status: Active Protocol: Document 11/18/22 09:49 ED (Rec: 11/18/22 09:54 ED [id number]) Cardio Equipment Treadmill Duration (Minutes) 10 Speed 2.0 Incline 9 Other 10' at end for activity tolerance and work capacity Therapeutic Exercises Supine Exercises bridge variations Reps/Minutes 2x10 Comments normal bridge, straight leg bridge, bridge walkouts Sitting Exercises LAQ Resistance L2-3 Reps/Minutes 2x15 Standing Exercises pogos Reps/Minutes 3x10'' on 10'' off Comments UE support on bar Therapeutic Activity Therapeutic Activity wall squat Reps/Minutes 3x30 seconds Comments accompanied with heel raises split squat Reps/Minutes 3x6-10 Comments 1 foam pads and UE support for balance PT-OP-T Assessment and Plan Start: 10/28/22 11:05 Freq: Status: Active Protocol: Document 11/18/22 09:49 ED (Rec: 11/18/22 09:54 ED [id number]) Physical Therapy Assessment Goals Four Impairment cardio Short Term Goal (STG) Pt will be able to walk on TM at >10% incline for 10 minutes . STG Duration 2 weeks Custodial Goal (LTG) Pt will be able to slow jog for 10 minutes comfortably. LTG Duration 6 weeks Three Impairment impact activities Short Term Goal (STG) Pt will be able to perform pogos for 30 seconds on both legs comfortably. STG Duration 2 weeks. Board Certified Behavioral Analyst Goal (LTG) Pt will be able to perform drop jump from 6-8'' height comfortably. LTG Duration 6 weeks Two Impairment unilateral strength Short Term Goal (STG) Pt will be able to perform 10 single leg hip bridges for R LE. STG Duration 2 weeks Board Certified Behavioral Analyst Goal (LTG) Pt will be able to perform split squat w/ R LE forward. LTG Duration 6 weeks. One Impairment HEP Short Term Goal (STG) Pt will report performing HEP >4 days/week. STG Duration 2 weeks Custodial Goal (LTG) Pt will report performing HEP >4 days/week. LTG Duration 6 weeks Assessment Summary Assessment Pt has reported improvements in balance and coordination since starting physical therapy. Continued performing previous exercises such as split squat, mini jumps, and other drills to improve strength, coordination, and dynamic balance. Pt has not had any increased discomfort or fatigue since starting exercising. Physical Therapy Plan Next Visit Focus/Plan Next Note Type Treatment Note Next Visit Plan bike, bridge variations, pogos , fwd hops/lateral hops, step ups, LAQ, hamstring curl, incline TM
--- NOTE | 2022-11-23 15:05 | PT.OTN ---
Current Diagnoses Unspecified sequelae of cerebral infarction (11/23/22) Physical Therapy Treatment Note PT-OP-A Visit Information Start: 10/28/22 11:05 Freq: Status: Active Protocol: Document 11/23/22 15:01 ED (Rec: 11/23/22 15:05 ED [id number]) Out-Patient Physical Therapy Visit Information Visit Information Visit Type Treatment Note Visit Note 08/13 Visit Start Time 14:20 Visit Stop Time 15:00 Total Visit Minutes 40 Visit Number 6 Number of VIDEOGAME DESIGNER Visits 0 PT-OP-B Current Condition Start: 10/28/22 11:05 Freq: Status: Active Protocol: Document 10/28/22 11:12 ED (Rec: 10/28/22 12:10 ED [id number]) Current Condition History of Current Condition Current Complaints poor motor planning History of Current Condition Pt states that she had a stroke in 2019 and notes that there is a delay in what she wants to do and then the motor firing for it to actually occur. She states it was a R side CVA but she had R sided deficits as opposed to L sided deficits. Additionally, she states that her balance is terrible. She states that she falls a lot and she sways when she stands; she tends to stand with a wide Alicia when standing. She denies having any physical therapy after her CVA. She states she used to run but no longer can. She has aspirations of returning to running. She has a physioball and tennis balls at home. She states that her R foot is the most problematic; she notices poor motor planning for her R LE especially on stairs. She states she walks about 30-60 minutes/day. Treatment Goals Patient/Caregiver Goals Improve coordination and get back to running (5k by next year) PT-OP-C Subjective Start: 10/28/22 11:05 Freq: Status: Active Protocol: Document 11/23/22 15:01 ED (Rec: 11/23/22 15:05 ED [id number]) OP-PT Subjective Patient Comments Patient Comments Pt states that she is getting an iron infusion tomorrow so she is expecting to be very fatigued at the next session. PT-OP-D Balance Start: 10/28/22 11:05 Freq: Status: Active Protocol: Document 10/28/22 11:12 ED (Rec: 10/28/22 12:10 ED [id number]) Balance Tests Single Limb Standing Single Limb- Right <10 seconds Single Limb- Left >10 seconds PT-OP-E Functional Tests Start: 10/28/22 11:05 Freq: Status: Active Protocol: Document 10/28/22 11:12 ED (Rec: 10/28/22 12:10 ED [id number]) Functional Tests 30 Second Sit to Stand Test Score 14 Comments favored L side Single Leg Squat Test Comment unable to perform single leg squat to/from table for R LE PT-OP-Q Treatments Start: 10/28/22 11:05 Freq: Status: Active Protocol: Document 11/23/22 15:01 ED (Rec: 11/23/22 15:05 ED [id number]) Cardio Equipment Bicycle (Upright) Duration (Minutes) 5 Seat Position L4 Treadmill Duration (Minutes) 10 Speed 2.0 Incline 9 Other 10' at end for activity tolerance and work capacity Therapeutic Exercises Supine Exercises bridge variations Reps/Minutes 2x10 Comments normal bridge, straight leg bridge, bridge walkouts Therapeutic Activity Therapeutic Activity step up Reps/Minutes [id number]/leg Comments 10# Neuro Re-Education Treatment Balance Activities single leg RDL Equipment basketball to touch floor Reps/Duration 3x6-8 PT-OP-T Assessment and Plan Start: 10/28/22 11:05 Freq: Status: Active Protocol: Document 11/23/22 15:01 ED (Rec: 11/23/22 15:05 ED [id number]) Physical Therapy Assessment Goals Four Impairment cardio Short Term Goal (STG) Pt will be able to walk on TM at >10% incline for 10 minutes . STG Duration 2 weeks Alf Goal (LTG) Pt will be able to slow jog for 10 minutes comfortably. LTG Duration 6 weeks Three Impairment impact activities Short Term Goal (STG) Pt will be able to perform pogos for 30 seconds on both legs comfortably. STG Duration 2 weeks. Alf Goal (LTG) Pt will be able to perform drop jump from 6-8'' height comfortably. LTG Duration 6 weeks Two Impairment unilateral strength Short Term Goal (STG) Pt will be able to perform 10 single leg hip bridges for R LE. STG Duration 2 weeks Alf Goal (LTG) Pt will be able to perform split squat w/ R LE forward. LTG Duration 6 weeks. One Impairment HEP Short Term Goal (STG) Pt will report performing HEP >4 days/week. STG Duration 2 weeks Chief Medical Officer Goal (LTG) Pt will report performing HEP >4 days/week. LTG Duration 6 weeks Assessment Summary Assessment Pt feeling slightly fatigued today so PT elected to refrain from higher intensity movements such as jumping and quick reaction timing. Worked on step ups and single leg RDLs for unilateral strengthening and dynamic balance. Pt did well with movements today. Physical Therapy Plan Frequency and Duration Frequency of Treatment 2x/Week Duration of treatment (weeks) 8 Plan of Care Start Date 10/28/22 Plan of Care End Date 01/26/23
--- NOTE | 2022-11-25 13:20 | PT.OTN ---
Current Diagnoses Unspecified sequelae of cerebral infarction (11/25/22) Physical Therapy Treatment Note PT-OP-A Visit Information Start: 10/28/22 11:05 Freq: Status: Active Protocol: Document 11/25/22 13:16 ED (Rec: 11/25/22 13:20 ED [id number]) Out-Patient Physical Therapy Visit Information Visit Information Visit Type Treatment Note Visit Note 09/13 Visit Start Time 12:45 Visit Stop Time 13:15 Total Visit Minutes 30 Visit Number 7 Number of WOOL HAT FINISHER Visits 0 PT-OP-B Current Condition Start: 10/28/22 11:05 Freq: Status: Active Protocol: Document 10/28/22 11:12 ED (Rec: 10/28/22 12:10 ED [id number]) Current Condition History of Current Condition Current Complaints poor motor planning History of Current Condition Pt states that she had a stroke in 2019 and notes that there is a delay in what she wants to do and then the motor firing for it to actually occur. She states it was a R side CVA but she had R sided deficits as opposed to L sided deficits. Additionally, she states that her balance is terrible. She states that she falls a lot and she sways when she stands; she tends to stand with a wide Alicia when standing. She denies having any physical therapy after her CVA. She states she used to run but no longer can. She has aspirations of returning to running. She has a physioball and tennis balls at home. She states that her R foot is the most problematic; she notices poor motor planning for her R LE especially on stairs. She states she walks about 30-60 minutes/day. Treatment Goals Patient/Caregiver Goals Improve coordination and get back to running (5k by next year) PT-OP-C Subjective Start: 10/28/22 11:05 Freq: Status: Active Protocol: Document 11/25/22 13:16 ED (Rec: 11/25/22 13:20 ED [id number]) OP-PT Subjective Patient Comments Patient Comments Pt states that she is feeling a little worn out after getting an iron infusion yesterday. States she needs to have a shorter appointment today as she is getting an MRI later. PT-OP-D Balance Start: 10/28/22 11:05 Freq: Status: Active Protocol: Document 10/28/22 11:12 ED (Rec: 10/28/22 12:10 ED [id number]) Balance Tests Single Limb Standing Single Limb- Right <10 seconds Single Limb- Left >10 seconds PT-OP-E Functional Tests Start: 10/28/22 11:05 Freq: Status: Active Protocol: Document 10/28/22 11:12 ED (Rec: 10/28/22 12:10 ED [id number]) Functional Tests 30 Second Sit to Stand Test Score 14 Comments favored L side Single Leg Squat Test Comment unable to perform single leg squat to/from table for R LE PT-OP-Q Treatments Start: 10/28/22 11:05 Freq: Status: Active Protocol: Document 11/25/22 13:16 ED (Rec: 11/25/22 13:20 ED [id number]) Cardio Equipment Bicycle (Upright) Duration (Minutes) 5 Seat Position L4 Treadmill Duration (Minutes) 10 Speed 2.0 Incline 9 Other 10' at end for activity tolerance and work capacity Therapeutic Exercises Prone Exercises bent over hip extension Resistance 10# Equipment Used cuff weight Reps/Minutes 2x10/leg hamstring curl Side bilateral Resistance 10#/leg Equipment Used cuff weight Reps/Minutes 2f23-37 Sitting Exercises LAQ Resistance L3 Reps/Minutes 2x15 PT-OP-T Assessment and Plan Start: 10/28/22 11:05 Freq: Status: Active Protocol: Document 11/25/22 13:16 ED (Rec: 11/25/22 13:20 ED [id number]) Physical Therapy Assessment Goals Four Impairment cardio Short Term Goal (STG) Pt will be able to walk on TM at >10% incline for 10 minutes . STG Duration 2 weeks Group Home Goal (LTG) Pt will be able to slow jog for 10 minutes comfortably. LTG Duration 6 weeks Three Impairment impact activities Short Term Goal (STG) Pt will be able to perform pogos for 30 seconds on both legs comfortably. STG Duration 2 weeks. Group Home Goal (LTG) Pt will be able to perform drop jump from 6-8'' height comfortably. LTG Duration 6 weeks Two Impairment unilateral strength Short Term Goal (STG) Pt will be able to perform 10 single leg hip bridges for R LE. STG Duration 2 weeks Group Home Goal (LTG) Pt will be able to perform split squat w/ R LE forward. LTG Duration 6 weeks. One Impairment HEP Short Term Goal (STG) Pt will report performing HEP >4 days/week. STG Duration 2 weeks Car Lubricator Goal (LTG) Pt will report performing HEP >4 days/week. LTG Duration 6 weeks Assessment Summary Assessment PT had patient perform less overall volume and externally stabilized exercises as she was already fatigued from iron infusion yesterday. Pt tolerated treatment well. Ended session early, per patient request, as she had an MRI later. Physical Therapy Plan Frequency and Duration Frequency of Treatment 2x/Week Duration of treatment (weeks) 8 Plan of Care Start Date 10/28/22 Plan of Care End Date 01/26/23
--- NOTE | 2022-11-30 13:31 | PT.OTN ---
Current Diagnoses Unspecified sequelae of cerebral infarction (11/30/22) Physical Therapy Treatment Note PT-OP-A Visit Information Start: 10/28/22 11:05 Freq: Status: Active Protocol: Document 11/30/22 13:27 ED (Rec: 11/30/22 13:31 ED [id number]) Out-Patient Physical Therapy Visit Information Visit Information Visit Type Treatment Note Visit Note 10/13 Visit Start Time 12:45 Visit Stop Time 13:25 Total Visit Minutes 40 Visit Number 7 Number of COAL CHEMIST Visits 0 PT-OP-B Current Condition Start: 10/28/22 11:05 Freq: Status: Active Protocol: Document 10/28/22 11:12 ED (Rec: 10/28/22 12:10 ED [id number]) Current Condition History of Current Condition Current Complaints poor motor planning History of Current Condition Pt states that she had a stroke in 2019 and notes that there is a delay in what she wants to do and then the motor firing for it to actually occur. She states it was a R side CVA but she had R sided deficits as opposed to L sided deficits. Additionally, she states that her balance is terrible. She states that she falls a lot and she sways when she stands; she tends to stand with a wide Alicia when standing. She denies having any physical therapy after her CVA. She states she used to run but no longer can. She has aspirations of returning to running. She has a physioball and tennis balls at home. She states that her R foot is the most problematic; she notices poor motor planning for her R LE especially on stairs. She states she walks about 30-60 minutes/day. Treatment Goals Patient/Caregiver Goals Improve coordination and get back to running (5k by next year) PT-OP-C Subjective Start: 10/28/22 11:05 Freq: Status: Active Protocol: Document 11/30/22 13:27 ED (Rec: 11/30/22 13:31 ED [id number]) OP-PT Subjective Patient Comments Patient Comments Pt states that she is feeling better after her iron infusion last week. States she has noticed improvements in her balance and she is more confident doing activities around the house. PT-OP-D Balance Start: 10/28/22 11:05 Freq: Status: Active Protocol: Document 10/28/22 11:12 ED (Rec: 10/28/22 12:10 ED [id number]) Balance Tests Single Limb Standing Single Limb- Right <10 seconds Single Limb- Left >10 seconds PT-OP-E Functional Tests Start: 10/28/22 11:05 Freq: Status: Active Protocol: Document 10/28/22 11:12 ED (Rec: 10/28/22 12:10 ED [id number]) Functional Tests 30 Second Sit to Stand Test Score 14 Comments favored L side Single Leg Squat Test Comment unable to perform single leg squat to/from table for R LE PT-OP-Q Treatments Start: 10/28/22 11:05 Freq: Status: Active Protocol: Document 11/30/22 13:27 ED (Rec: 11/30/22 13:31 ED [id number]) Cardio Equipment Bicycle (Upright) Duration (Minutes) 5 Seat Position L4 Treadmill Duration (Minutes) 10 Speed 2.0 Incline 9 Other 10' at end for activity tolerance and work capacity Therapeutic Exercises Supine Exercises bridge variations Reps/Minutes 2x10 Comments normal bridge, straight leg bridge, bridge walkouts Sitting Exercises LAQ Resistance L3 Reps/Minutes 2x15 Standing Exercises fwd hops Reps/Minutes 4x5-8 hops Therapeutic Activity Therapeutic Activity split squat Reps/Minutes 3x20'' isometric hold Comments 1 foam pads and UE support for balance Neuro Re-Education Treatment Balance Activities single leg RDL Equipment basketball to touch floor Reps/Duration 3x6-8 PT-OP-T Assessment and Plan Start: 10/28/22 11:05 Freq: Status: Active Protocol: Document 11/30/22 13:27 ED (Rec: 11/30/22 13:31 ED [id number]) Physical Therapy Assessment Goals Four Impairment cardio Short Term Goal (STG) Pt will be able to walk on TM at >10% incline for 10 minutes . STG Duration 2 weeks Manager Qa Goal (LTG) Pt will be able to slow jog for 10 minutes comfortably. LTG Duration 6 weeks Three Impairment impact activities Short Term Goal (STG) Pt will be able to perform pogos for 30 seconds on both legs comfortably. STG Duration 2 weeks. Assisted Goal (LTG) Pt will be able to perform drop jump from 6-8'' height comfortably. LTG Duration 6 weeks Two Impairment unilateral strength Short Term Goal (STG) Pt will be able to perform 10 single leg hip bridges for R LE. STG Duration 2 weeks Assisted Goal (LTG) Pt will be able to perform split squat w/ R LE forward. LTG Duration 6 weeks. One Impairment HEP Short Term Goal (STG) Pt will report performing HEP >4 days/week. STG Duration 2 weeks Manager Qa Goal (LTG) Pt will report performing HEP >4 days/week. LTG Duration 6 weeks Assessment Summary Assessment Pt showing improvements in dynamic balance, strength, and self efficacy in performing challenging movements. Exercises have been able to be progressed so this week she performed longer hops, 20'' isometric split squats, and single leg RDLs. Physical Therapy Plan Frequency and Duration Frequency of Treatment 2x/Week Duration of treatment (weeks) 8 Plan of Care Start Date 10/28/22 Plan of Care End Date 01/26/23 Next Visit Focus/Plan Next Note Type Treatment Note Next Visit Plan bike, bridge variations, pogos , fwd hops/lateral hops, step ups, LAQ, hamstring curl, incline TM
--- NOTE | 2022-12-02 13:50 | PT.OTN ---
Current Diagnoses Unspecified sequelae of cerebral infarction (12/02/22) Physical Therapy Treatment Note PT-OP-A Visit Information Start: 10/28/22 11:05 Freq: Status: Active Protocol: Document 12/02/22 13:40 ED (Rec: 12/02/22 13:50 ED [id number]) Out-Patient Physical Therapy Visit Information Visit Information Visit Type Treatment Note Visit Note 812 Visit Start Time 12:50 Visit Stop Time 13:40 Total Visit Minutes 50 Visit Number 8 Number of WIND SITE MANAGER Visits 0 PT-OP-B Current Condition Start: 10/28/22 11:05 Freq: Status: Active Protocol: Document 10/28/22 11:12 ED (Rec: 10/28/22 12:10 ED [id number]) Current Condition History of Current Condition Current Complaints poor motor planning History of Current Condition Pt states that she had a stroke in 2019 and notes that there is a delay in what she wants to do and then the motor firing for it to actually occur. She states it was a R side CVA but she had R sided deficits as opposed to L sided deficits. Additionally, she states that her balance is terrible. She states that she falls a lot and she sways when she stands; she tends to stand with a wide Alicia when standing. She denies having any physical therapy after her CVA. She states she used to run but no longer can. She has aspirations of returning to running. She has a physioball and tennis balls at home. She states that her R foot is the most problematic; she notices poor motor planning for her R LE especially on stairs. She states she walks about 30-60 minutes/day. Treatment Goals Patient/Caregiver Goals Improve coordination and get back to running (5k by next year) PT-OP-C Subjective Start: 10/28/22 11:05 Freq: Status: Active Protocol: Document 12/02/22 13:40 ED (Rec: 12/02/22 13:50 ED [id number]) OP-PT Subjective Patient Comments Patient Comments Pt states she had another iron infusion yesterday and is feeling really fatigued today. States that she goes to the gym a few days/week but typically just uses the elliptical or machine based weights. PT-OP-D Balance Start: 10/28/22 11:05 Freq: Status: Active Protocol: Document 10/28/22 11:12 ED (Rec: 10/28/22 12:10 ED [id number]) Balance Tests Single Limb Standing Single Limb- Right <10 seconds Single Limb- Left >10 seconds PT-OP-E Functional Tests Start: 10/28/22 11:05 Freq: Status: Active Protocol: Document 10/28/22 11:12 ED (Rec: 10/28/22 12:10 ED [id number]) Functional Tests 30 Second Sit to Stand Test Score 14 Comments favored L side Single Leg Squat Test Comment unable to perform single leg squat to/from table for R LE PT-OP-Q Treatments Start: 10/28/22 11:05 Freq: Status: Active Protocol: Document 12/02/22 13:40 ED (Rec: 12/02/22 13:50 ED [id number]) Cardio Equipment Bicycle (Upright) Duration (Minutes) 5 Seat Position L4 Treadmill Duration (Minutes) 10 Speed 2.0 Incline 9 Other 10' at end for activity tolerance and work capacity Therapeutic Exercises Sitting Exercises hamstring curl Resistance L2-3 Reps/Minutes 2x15 Standing Exercises heel raise Standing Exercise Name Cpt [place] heel raise Reps/Minutes 2x10/leg Therapeutic Activity Therapeutic Activity step up Reps/Minutes 2x10/leg Comments high step up hugging ball squat Name bodyweight squat Reps/Minutes [id number] Neuro Re-Education Treatment Balance Activities aminata walk Details aminata step overs Equipment hurdles Reps/Duration 3x2 laps x6 hurdles dynamic balance Details 3 way toe taps Reps/Duration 2x5 touch each spot Comments fwd, lateral, and posteromedial taps PT-OP-T Assessment and Plan Start: 10/28/22 11:05 Freq: Status: Active Protocol: Document 12/02/22 13:40 ED (Rec: 12/02/22 13:50 ED [id number]) Physical Therapy Assessment Goals Four Impairment cardio Short Term Goal (STG) Pt will be able to walk on TM at >10% incline for 10 minutes . STG Duration 2 weeks Detention Goal (LTG) Pt will be able to slow jog for 10 minutes comfortably. LTG Duration 6 weeks Three Impairment impact activities Short Term Goal (STG) Pt will be able to perform pogos for 30 seconds on both legs comfortably. STG Duration 2 weeks. Detention Goal (LTG) Pt will be able to perform drop jump from 6-8'' height comfortably. LTG Duration 6 weeks Two Impairment unilateral strength Short Term Goal (STG) Pt will be able to perform 10 single leg hip bridges for R LE. STG Duration 2 weeks Upsetter Helper Goal (LTG) Pt will be able to perform split squat w/ R LE forward. LTG Duration 6 weeks. One Impairment HEP Short Term Goal (STG) Pt will report performing HEP >4 days/week. STG Duration 2 weeks Detention Goal (LTG) Pt will report performing HEP >4 days/week. LTG Duration 6 weeks Assessment Summary Assessment Pt more fatigued today after iron infusion yesterday. PT had patient perform primarily balanced based exercises including aminata step overs, single leg toe taps in 3 plans of motion, and no UE assist step ups. Pt did well during treatment but did report having difficulty during balance exercises; patient hopeful she will have more energy next week. Physical Therapy Plan Frequency and Duration Frequency of Treatment 2x/Week Duration of treatment (weeks) 8 Plan of Care Start Date 10/28/22 Plan of Care End Date 01/26/23 Next Visit Focus/Plan Next Note Type Treatment Note Next Visit Plan bike, bridge variations, pogos , 3 way toe taps, fwd hops/ lateral hops, split squats, LAQ, hamstring curl, incline TM
--- NOTE | 2022-12-08 11:36 | PT.OTN ---
Current Diagnoses Unspecified sequelae of cerebral infarction (12/08/22) Physical Therapy Treatment Note PT-OP-A Visit Information Start: 10/28/22 11:05 Freq: Status: Active Protocol: Document 12/08/22 11:32 ED (Rec: 12/08/22 11:36 ED [id number]) Out-Patient Physical Therapy Visit Information Visit Information Visit Type Treatment Note Visit Note 12/14 Visit Start Time 10:45 Visit Stop Time 11:30 Total Visit Minutes 45 Visit Number 9 Number of BIODIESEL TECHNOLOGY MANAGER Visits 0 PT-OP-B Current Condition Start: 10/28/22 11:05 Freq: Status: Active Protocol: Document 10/28/22 11:12 ED (Rec: 10/28/22 12:10 ED [id number]) Current Condition History of Current Condition Current Complaints poor motor planning History of Current Condition Pt states that she had a stroke in 2019 and notes that there is a delay in what she wants to do and then the motor firing for it to actually occur. She states it was a R side CVA but she had R sided deficits as opposed to L sided deficits. Additionally, she states that her balance is terrible. She states that she falls a lot and she sways when she stands; she tends to stand with a wide Alicia when standing. She denies having any physical therapy after her CVA. She states she used to run but no longer can. She has aspirations of returning to running. She has a physioball and tennis balls at home. She states that her R foot is the most problematic; she notices poor motor planning for her R LE especially on stairs. She states she walks about 30-60 minutes/day. Treatment Goals Patient/Caregiver Goals Improve coordination and get back to running (5k by next year) PT-OP-C Subjective Start: 10/28/22 11:05 Freq: Status: Active Protocol: Document 12/08/22 11:32 ED (Rec: 12/08/22 11:36 ED [id number]) OP-PT Subjective Patient Comments Patient Comments Pt states that she has noticed dramatic improvements in her balance and strength since starting PT. She thinks that she will finish up her 12 PT visits and then try to go to the gym independently to continue her gains. PT-OP-D Balance Start: 10/28/22 11:05 Freq: Status: Active Protocol: Document 10/28/22 11:12 ED (Rec: 10/28/22 12:10 ED [id number]) Balance Tests Single Limb Standing Single Limb- Right <10 seconds Single Limb- Left >10 seconds PT-OP-E Functional Tests Start: 10/28/22 11:05 Freq: Status: Active Protocol: Document 10/28/22 11:12 ED (Rec: 10/28/22 12:10 ED [id number]) Functional Tests 30 Second Sit to Stand Test Score 14 Comments favored L side Single Leg Squat Test Comment unable to perform single leg squat to/from table for R LE PT-OP-Q Treatments Start: 10/28/22 11:05 Freq: Status: Active Protocol: Document 12/08/22 11:32 ED (Rec: 12/08/22 11:36 ED [id number]) Cardio Equipment Treadmill Duration (Minutes) 10 Speed 2.0 Incline 12 Other 10' at end for activity tolerance and work capacity Therapeutic Exercises Supine Exercises bridge variations Reps/Minutes 2x10 Comments normal bridge, straight leg bridge, bridge walkouts Standing Exercises jump lands Equipment Used 8'' box Reps/Minutes 3x8 reps fwd hops Reps/Minutes 4x5-8 hops pogos Reps/Minutes 2x30 seconds Comments off 4'' step Therapeutic Activity Therapeutic Activity squat Name bodyweight squat Reps/Minutes [id number] Comments 10# ball Neuro Re-Education Treatment Balance Activities dynamic balance Details 3 way toe taps Reps/Duration 2x5 touch each spot Comments fwd, lateral, and posteromedial taps PT-OP-T Assessment and Plan Start: 10/28/22 11:05 Freq: Status: Active Protocol: Document 12/08/22 11:32 ED (Rec: 12/08/22 11:36 ED [id number]) Physical Therapy Assessment Goals Four Impairment cardio Short Term Goal (STG) Pt will be able to walk on TM at >10% incline for 10 minutes . STG Duration 2 weeks - MET Vice President Of Human Resources Goal (LTG) Pt will be able to slow jog for 10 minutes comfortably. LTG Duration 6 weeks Three Impairment impact activities Short Term Goal (STG) Pt will be able to perform pogos for 30 seconds on both legs comfortably. STG Duration 2 weeks. -MET Shelter Goal (LTG) Pt will be able to perform drop jump from 6-8'' height comfortably. LTG Duration 6 weeks -MET Two Impairment unilateral strength Short Term Goal (STG) Pt will be able to perform 10 single leg hip bridges for R LE. STG Duration 2 weeks Vice President Of Human Resources Goal (LTG) Pt will be able to perform split squat w/ R LE forward. LTG Duration 6 weeks. One Impairment HEP Short Term Goal (STG) Pt will report performing HEP >4 days/week. STG Duration 2 weeks Vice President Of Human Resources Goal (LTG) Pt will report performing HEP >4 days/week. LTG Duration 6 weeks Assessment Summary Assessment PT provided patient c/ a 2 day lower extremity workout program for her to do once she finishes PT. PT and patient spoke regarding her visits as she was approved for 12 visits ; she stated she thinks she can continue on her own a the gym. Pt has demonstrated improved balance, strength, and work capacity in her 9 visits so far. PT will continue to work on educating patient so she can improve independently. Physical Therapy Plan Frequency and Duration Frequency of Treatment 2x/Week Duration of treatment (weeks) 8 Plan of Care Start Date 10/28/22 Plan of Care End Date 01/26/23 Next Visit Focus/Plan Next Note Type Treatment Note Next Visit Plan bike, bridge variations, pogos , 3 way toe taps, fwd hops/ lateral hops, split squats, LAQ, hamstring curl, incline TM
--- NOTE | 2022-12-10 11:25 | PT.OTN ---
Current Diagnoses Unspecified sequelae of cerebral infarction (12/10/22) Physical Therapy Treatment Note PT-OP-A Visit Information Start: 10/28/22 11:05 Freq: Status: Active Protocol: Document 12/10/22 11:18 ED (Rec: 12/10/22 11:24 ED [id number]) Out-Patient Physical Therapy Visit Information Visit Information Visit Type Treatment Note Visit Note 01/13 Visit Start Time 10:45 Visit Stop Time 11:25 Total Visit Minutes 40 Visit Number 10 Number of BOWLING BALL WEIGHER AND PACKER Visits 0 PT-OP-B Current Condition Start: 10/28/22 11:05 Freq: Status: Active Protocol: Document 10/28/22 11:12 ED (Rec: 10/28/22 12:10 ED [id number]) Current Condition History of Current Condition Current Complaints poor motor planning History of Current Condition Pt states that she had a stroke in 2019 and notes that there is a delay in what she wants to do and then the motor firing for it to actually occur. She states it was a R side CVA but she had R sided deficits as opposed to L sided deficits. Additionally, she states that her balance is terrible. She states that she falls a lot and she sways when she stands; she tends to stand with a wide Alicia when standing. She denies having any physical therapy after her CVA. She states she used to run but no longer can. She has aspirations of returning to running. She has a physioball and tennis balls at home. She states that her R foot is the most problematic; she notices poor motor planning for her R LE especially on stairs. She states she walks about 30-60 minutes/day. Treatment Goals Patient/Caregiver Goals Improve coordination and get back to running (5k by next year) PT-OP-C Subjective Start: 10/28/22 11:05 Freq: Status: Active Protocol: Document 12/10/22 11:18 ED (Rec: 12/10/22 11:24 ED [id number]) OP-PT Subjective Patient Comments Patient Comments Pt continues to report improvements in her overall balance. It sounds like patient is going to finish her appointments next week and then be done c/ PT. PT-OP-D Balance Start: 10/28/22 11:05 Freq: Status: Active Protocol: Document 10/28/22 11:12 ED (Rec: 10/28/22 12:10 ED [id number]) Balance Tests Single Limb Standing Single Limb- Right <10 seconds Single Limb- Left >10 seconds PT-OP-E Functional Tests Start: 10/28/22 11:05 Freq: Status: Active Protocol: Document 10/28/22 11:12 ED (Rec: 10/28/22 12:10 ED [id number]) Functional Tests 30 Second Sit to Stand Test Score 14 Comments favored L side Single Leg Squat Test Comment unable to perform single leg squat to/from table for R LE PT-OP-Q Treatments Start: 10/28/22 11:05 Freq: Status: Active Protocol: Document 12/10/22 11:18 ED (Rec: 12/10/22 11:24 ED [id number]) Cardio Equipment Bicycle (Upright) Duration (Minutes) 5 Seat Position L4 Treadmill Duration (Minutes) 10 Speed 2.0 Incline 12 Other 10' at end for activity tolerance and work capacity Therapeutic Exercises Standing Exercises jump lands Equipment Used 8'' box Reps/Minutes 3x5 reps Comments 2x5 unilateral lands Therapeutic Activity Therapeutic Activity wall squat Reps/Minutes 3x30 seconds Comments accompanied with heel raises step up Reps/Minutes 2x10/leg Comments 8'' step c/ oppo knee drive hugging ball split squat Name walking lunge Reps/Minutes 3x8/leg PT-OP-T Assessment and Plan Start: 10/28/22 11:05 Freq: Status: Active Protocol: Document 12/10/22 11:18 ED (Rec: 12/10/22 11:24 ED [id number]) Physical Therapy Assessment Goals Four Impairment cardio Short Term Goal (STG) Pt will be able to walk on TM at >10% incline for 10 minutes . STG Duration 2 weeks - MET Fdc Goal (LTG) Pt will be able to slow jog for 10 minutes comfortably. LTG Duration 6 weeks Three Impairment impact activities Short Term Goal (STG) Pt will be able to perform pogos for 30 seconds on both legs comfortably. STG Duration 2 weeks. -MET Fdc Goal (LTG) Pt will be able to perform drop jump from 6-8'' height comfortably. LTG Duration 6 weeks -MET Two Impairment unilateral strength Short Term Goal (STG) Pt will be able to perform 10 single leg hip bridges for R LE. STG Duration 2 weeks Fdc Goal (LTG) Pt will be able to perform split squat w/ R LE forward. LTG Duration 6 weeks. One Impairment HEP Short Term Goal (STG) Pt will report performing HEP >4 days/week. STG Duration 2 weeks Fdc Goal (LTG) Pt will report performing HEP >4 days/week. LTG Duration 6 weeks Physical Therapy Plan Frequency and Duration Frequency of Treatment 2x/Week Duration of treatment (weeks) 8 Plan of Care Start Date 10/28/22 Plan of Care End Date 01/26/23 Next Visit Focus/Plan Next Note Type Treatment Note Next Visit Plan bike, bridge variations, walking lunge, pogos, 3 way toe taps, fwd hops/lateral hops, split squats, LAQ, hamstring curl, incline TM
--- NOTE | 2022-12-14 11:35 | PT.OTN ---
Current Diagnoses Unspecified sequelae of cerebral infarction (12/14/22) Physical Therapy Treatment Note PT-OP-A Visit Information Start: 10/28/22 11:05 Freq: Status: Active Protocol: Document 12/14/22 11:30 ED (Rec: 12/14/22 11:35 ED [id number]) Out-Patient Physical Therapy Visit Information Visit Information Visit Type Treatment Note Visit Note 02/13 Visit Start Time 10:45 Visit Stop Time 11:30 Total Visit Minutes 45 Visit Number 11 Number of ENGINEERING DESIGNER Visits 0 PT-OP-B Current Condition Start: 10/28/22 11:05 Freq: Status: Active Protocol: Document 10/28/22 11:12 ED (Rec: 10/28/22 12:10 ED [id number]) Current Condition History of Current Condition Current Complaints poor motor planning History of Current Condition Pt states that she had a stroke in 2019 and notes that there is a delay in what she wants to do and then the motor firing for it to actually occur. She states it was a R side CVA but she had R sided deficits as opposed to L sided deficits. Additionally, she states that her balance is terrible. She states that she falls a lot and she sways when she stands; she tends to stand with a wide Alicia when standing. She denies having any physical therapy after her CVA. She states she used to run but no longer can. She has aspirations of returning to running. She has a physioball and tennis balls at home. She states that her R foot is the most problematic; she notices poor motor planning for her R LE especially on stairs. She states she walks about 30-60 minutes/day. Treatment Goals Patient/Caregiver Goals Improve coordination and get back to running (5k by next year) PT-OP-C Subjective Start: 10/28/22 11:05 Freq: Status: Active Protocol: Document 12/14/22 11:30 ED (Rec: 12/14/22 11:35 ED [id number]) OP-PT Subjective Patient Comments Patient Comments Pt states that she is markedly better in regards to balance, strength, and activity tolerance compared to this time last year. She states she is ready to be discharged at next visit. PT-OP-D Balance Start: 10/28/22 11:05 Freq: Status: Active Protocol: Document 10/28/22 11:12 ED (Rec: 10/28/22 12:10 ED [id number]) Balance Tests Single Limb Standing Single Limb- Right <10 seconds Single Limb- Left >10 seconds PT-OP-E Functional Tests Start: 10/28/22 11:05 Freq: Status: Active Protocol: Document 10/28/22 11:12 ED (Rec: 10/28/22 12:10 ED [id number]) Functional Tests 30 Second Sit to Stand Test Score 14 Comments favored L side Single Leg Squat Test Comment unable to perform single leg squat to/from table for R LE PT-OP-Q Treatments Start: 10/28/22 11:05 Freq: Status: Active Protocol: Document 12/14/22 11:30 ED (Rec: 12/14/22 11:35 ED [id number]) Cardio Equipment Bicycle (Upright) Duration (Minutes) 5 Seat Position L4 Treadmill Duration (Minutes) 10 Speed 2.0 Incline 12 Other 10' at end for activity tolerance and work capacity Therapeutic Activity Therapeutic Activity split squat Name split squat Reps/Minutes 2x8/leg squat Name squat Reps/Minutes [id number] Comments 10# ball Neuro Re-Education Treatment Balance Activities aminata walk Details aminata step overs Equipment hurdles Reps/Duration 3x2 laps x6 hurdles single leg RDL Equipment basketball to touch floor Reps/Duration 3x6-[address] Details [address] toe taps Reps/Duration 2x5 touch each spot Comments fwd, lateral, and posteromedial taps PT-OP-T Assessment and Plan Start: 10/28/22 11:05 Freq: Status: Active Protocol: Document 12/14/22 11:30 ED (Rec: 12/14/22 11:35 ED [id number]) Physical Therapy Assessment Goals Four Impairment cardio Short Term Goal (STG) Pt will be able to walk on TM at >10% incline for 10 minutes . STG Duration 2 weeks - MET Assisted Goal (LTG) Pt will be able to slow jog for 10 minutes comfortably. LTG Duration 6 weeks Three Impairment impact activities Short Term Goal (STG) Pt will be able to perform pogos for 30 seconds on both legs comfortably. STG Duration 2 weeks. -MET Assisted Goal (LTG) Pt will be able to perform drop jump from 6-8'' height comfortably. LTG Duration 6 weeks -MET Two Impairment unilateral strength Short Term Goal (STG) Pt will be able to perform 10 single leg hip bridges for R LE. STG Duration 2 weeks Assisted Goal (LTG) Pt will be able to perform split squat w/ R LE forward. LTG Duration 6 weeks. -MET One Impairment HEP Short Term Goal (STG) Pt will report performing HEP >4 days/week. STG Duration 2 weeks Rail Washer Goal (LTG) Pt will report performing HEP >4 days/week. LTG Duration 6 weeks Assessment Summary Assessment Pt had increased difficulty today in performing balance activities; patient states she has days where her R LE just doesn't cooperate as well and stated today was one of the those days. Pt will likely be discharged at next visit. Physical Therapy Plan Next Visit Focus/Plan Next Note Type Discharge Summary Next Visit Plan give band, 30 second STS (14>) go over HEP
--- NOTE | 2022-12-16 11:26 | PT.OTN ---
Current Diagnoses Unspecified sequelae of cerebral infarction (12/16/22) Physical Therapy Treatment Note PT-OP-A Visit Information Start: 10/28/22 11:05 Freq: Status: Active Protocol: Document 12/16/22 11:21 ED (Rec: 12/16/22 11:26 ED [id number]) Out-Patient Physical Therapy Visit Information Visit Information Visit Type Discharge Summary Visit Note 03/15 Visit Start Time 10:45 Visit Stop Time 11:25 Total Visit Minutes 40 Visit Number 12 PT-OP-B Current Condition Start: 10/28/22 11:05 Freq: Status: Active Protocol: Document 10/28/22 11:12 ED (Rec: 10/28/22 12:10 ED [id number]) Current Condition History of Current Condition Current Complaints poor motor planning History of Current Condition Pt states that she had a stroke in 2019 and notes that there is a delay in what she wants to do and then the motor firing for it to actually occur. She states it was a R side CVA but she had R sided deficits as opposed to L sided deficits. Additionally, she states that her balance is terrible. She states that she falls a lot and she sways when she stands; she tends to stand with a wide Alicia when standing. She denies having any physical therapy after her CVA. She states she used to run but no longer can. She has aspirations of returning to running. She has a physioball and tennis balls at home. She states that her R foot is the most problematic; she notices poor motor planning for her R LE especially on stairs. She states she walks about 30-60 minutes/day. Treatment Goals Patient/Caregiver Goals Improve coordination and get back to running (5k by next year) PT-OP-C Subjective Start: 10/28/22 11:05 Freq: Status: Active Protocol: Document 12/16/22 11:21 ED (Rec: 12/16/22 11:26 ED [id number]) OP-PT Subjective Patient Comments Patient Comments Pt states that she is markedly better in regards to balance, strength, and activity tolerance compared to this time last year. Her goal is to run/walk a 5k by next year. She thinks she has enough knowledge on exercises for her to continue independently. PT-OP-D Balance Start: 10/28/22 11:05 Freq: Status: Active Protocol: Document 12/16/22 11:21 ED (Rec: 12/16/22 11:26 ED [id number]) Balance Tests Single Limb Standing Single Limb- Right >10 seconds Single Limb- Left >10 seconds PT-OP-E Functional Tests Start: 10/28/22 11:05 Freq: Status: Active Protocol: Document 12/16/22 11:21 ED (Rec: 12/16/22 11:26 ED [id number]) Functional Tests 30 Second Sit to Stand Test Score 18 Comments 14 reps at IE PT-OP-Q Treatments Start: 10/28/22 11:05 Freq: Status: Active Protocol: Document 12/16/22 11:21 ED (Rec: 12/16/22 11:26 ED [id number]) Cardio Equipment Bicycle (Upright) Duration (Minutes) 5 Seat Position L4 Treadmill Duration (Minutes) 8 Speed 2.0 Incline 12 Other 8' at end for activity tolerance and work capacity Therapeutic Exercises Sitting Exercises LAQ Resistance L3 Reps/Minutes 2x15 Standing Exercises jump lands Equipment Used 8'' box Reps/Minutes 3x5 reps Comments 2x5 unilateral lands fwd hops Reps/Minutes 4x5-8 hops Neuro Re-Education Treatment Balance Activities aminata walk Details aminata step overs Equipment hurdles Reps/Duration 3x2 laps x6 hurdles single leg RDL Equipment basketball to touch floor Reps/Duration 3x6-8 PT-OP-T Assessment and Plan Start: 10/28/22 11:05 Freq: Status: Active Protocol: Document 12/16/22 11:21 ED (Rec: 12/16/22 11:26 ED [id number]) Physical Therapy Assessment Goals Four Impairment cardio Short Term Goal (STG) Pt will be able to walk on TM at >10% incline for 10 minutes . STG Duration 2 weeks - MET Half-Way Goal (LTG) Pt will be able to slow jog for 10 minutes comfortably. LTG Duration 6 weeks -NOT MET Three Impairment impact activities Short Term Goal (STG) Pt will be able to perform pogos for 30 seconds on both legs comfortably. STG Duration 2 weeks. -MET Half-Way Goal (LTG) Pt will be able to perform drop jump from 6-8'' height comfortably. LTG Duration 6 weeks -MET Two Impairment unilateral strength Short Term Goal (STG) Pt will be able to perform 10 single leg hip bridges for R LE. STG Duration 2 weeks -MET Half-Way Goal (LTG) Pt will be able to perform split squat w/ R LE forward. LTG Duration 6 weeks. -MET One Impairment HEP Short Term Goal (STG) Pt will report performing HEP >4 days/week. STG Duration 2 weeks Web Analytics Developer Goal (LTG) Pt will report performing HEP >4 days/week. LTG Duration 6 weeks Progress Towards Goals Progress Towards Goals Progressing Toward Goals,Goals Met Assessment Summary Assessment Pt has improved considerably in since initiating physical therpay. Pt now able to balance for >10 seconds on single leg; at initial evaluation she could not balance for 10 seconds on R LE . Pt also improved her repetitions during 30 second sit<>stand test from 14 to 18. Pt does continue to have days where she is more fatigued and her balance is negatively impacted but otherwise she feels much improved in regards to stability, strength, and work capacity. Physical Therapy Plan Frequency and Duration Frequency of Treatment 2x/Week Duration of treatment (weeks) 8 Plan of Care Start Date 10/28/22 Plan of Care End Date 01/26/23 Discharge Physical Therapy Discharge Reasons Goals Met
== END 2022-12-20 15:41 | disposition home or self-care (01) ==
LOC: PHYS 10:45
PROVIDERS: Family Provider Family Medicine; PCP Family Medicine; Referring Provider Family Medicine; Visit Provider Family Medicine
DX: I69.30 Unspecified sequelae of cerebral infarction (principal)
CPT/HCPCS: 97110; 97112; 97162; 97530

== ENCOUNTER → 2023-08-31 09:27 | Outpatient (CLI) | payer OTHER, SELFPAY ==
[2023-08-31 10:40] LABS: Hemoglobin A1C% w Est Avg Glu 5.1 % (4.0-6.0)
[2023-08-31 10:56] LABS: Alanine Aminotransferase 32 IU/L (<35); Albumin 3.9 g/dL (3.5-5.0); Albumin Globulin Ratio 1.5 (1.0-2.8); Alkaline Phosphatase 64 U/L (38-126); Aspartate Aminotransferase 25 IU/L (14-36); BUN Creatinine Ratio 16.2 (6-22); Bilirubin Total 0.5 mg/dL (0.2-1.3); Blood Urea Nitrogen 12 mg/dL (7-17); Calcium 9.1 mg/dL (8.4-10.2); Carbon Dioxide 30 mmol/L (22-32); Chloride 105 mmol/L (98-107); Estimated Glomerular Filt Rate > 60 mL/min (>60); Globulin 2.6 g/dL (1.7-4.1); Glucose 101 mg/dL (70-100); HEMOLYSIS < 15 (0-50); Potassium 4.3 mmol/L (3.4-5.1); Sodium 139 mmol/L (137-145); Total Protein 6.5 g/dL (6.3-8.2)
[2023-08-31 11:27] LABS: TSH w/ Reflex to FT4 2.03 uIU/mL (0.47-4.68)
[2023-08-31 11:28] LABS: Cortisol AM (Before 10AM) 8.63 ug/dL (4.46-22.7)
[2023-08-31 11:47] LABS: Vitamin B12 342 pg/mL (239-931)
== END ==
PROVIDERS: Physician Assistant; Family Provider Family Medicine; PCP Family Medicine; Referring Provider Family Medicine; Visit Provider Family Medicine
DX: E88.810 Metabolic syndrome (principal); E88.818 Other insulin resistance; R53.83 Other fatigue
CPT/HCPCS: 36415; 80053; 82533; 82607; 83036; 84443

== ENCOUNTER → 2023-09-27 10:33 | Outpatient (CLI) | payer OTHER, SELFPAY ==
[2023-09-27 19:42] LABS: Follicle Stimulating Hormone 5.11 mIU/mL
[2023-10-03 00:36] LABS: Percent Free Testosterone 2.55 % (0.50-2.80); Testosterone Free 0.43 ng/dL (0.10-0.85); Testosterone Total 16.8 ng/dL (10.0-55.0)
[2023-10-03 14:08] LABS: Estradiol 26.9 pg/mL (.); Estriol,Serum <0.1 ng/mL (.); Estrone,Serum 11 pg/mL (27-231)
== END ==
PROVIDERS: Family Provider Family Medicine; PCP Family Medicine; Referring Provider Physician Assistant; Visit Provider Physician Assistant
DX: R63.5 Abnormal weight gain (principal); E88.810 Metabolic syndrome; E88.818 Other insulin resistance; N95.1 Menopausal and female climacteric states; Z90.710 Acquired absence of both cervix and uterus
CPT/HCPCS: 36415; 82627; 82670; 82677; 82679; 83001; 83002; 84402; 84403

== ENCOUNTER → 2023-12-13 14:21 | Outpatient (CLI) | payer OTHER, SELFPAY ==
[2023-12-13 17:03] LABS: Hemoglobin A1C% w Est Avg Glu 5.3 % (4.0-6.0)
[2023-12-20 14:36] LABS: Estradiol 29.4 pg/mL (.); Estriol,Serum <0.1 ng/mL (.); Estrone,Serum 31 pg/mL (27-231)
[2023-12-24 11:36] LABS: Percent Free Testosterone 2.25 % (0.50-2.80); Testosterone Free 0.43 ng/dL (0.10-0.85); Testosterone Total 19.1 ng/dL (10.0-55.0)
== END ==
PROVIDERS: Family Provider Family Medicine; PCP Family Medicine; Referring Provider Family Medicine; Visit Provider Family Medicine
DX: R63.5 Abnormal weight gain (principal)
CPT/HCPCS: 36415; 82670; 82677; 82679; 83036; 84144; 84402; 84403

== ENCOUNTER → 2024-02-28 11:44 | Outpatient (CLI) | payer OTHER, SELFPAY | PROVIDERS: Family Provider Family Medicine; PCP Family Medicine; Referring Provider Family Medicine; Visit Provider Family Medicine | DX: E79.89 Other specified disorders of purine and pyrimidine metabolism (principal); E34.9 Endocrine disorder, unspecified | CPT/HCPCS: 36415; 82670; 82677; 82679; 84402; 84403 ==

== ENCOUNTER → 2024-12-14 11:28 | Outpatient (CLI) | payer OTHER, SELFPAY ==
[2024-12-14 12:33] LABS: Add Manual Diff / Slide Review NO; Hematocrit 40.3 % (36-46); Hemoglobin 13.8 g/dL (12.0-16.0); Lymphocytes Absolute Auto 1800 /uL (1100-4500); Mean Corpuscular HGB Conc 34.2 % (30-36); Mean Corpuscular Hemoglobin 31.3 PG (26-34); Mean Corpuscular Volume 91.6 fL (80-100); Platelet Count 407 X10^3/uL (150-400)
[2024-12-14 12:48] LABS: Hemoglobin A1C% w Est Avg Glu 5.5 % (4.0-6.0)
[2024-12-14 12:56] LABS: Alanine Aminotransferase 25 IU/L (<35); Albumin 4.0 g/dL (3.5-5.0); Albumin Globulin Ratio 1.3 (1.0-2.8); Alkaline Phosphatase 83 U/L (38-126); Blood Urea Nitrogen 11 mg/dL (7-17); Calcium 9.3 mg/dL (8.4-10.2); Carbon Dioxide 27 mmol/L (22-32); Chloride 102 mmol/L (98-107); Cholesterol 181 mg/dL (140-199); Estimated Glomerular Filt Rate > 60 mL/min (>60); Globulin 3.1 g/dL (1.7-4.1); Glucose 86 mg/dL (70-99); HDL Cholesterol 51 mg/dL (40-60); HEMOLYSIS < 15 (0-50); Potassium 4.6 mmol/L (3.4-5.1); Sodium 138 mmol/L (137-145); Total Protein 7.1 g/dL (6.3-8.2); Triglycerides 67 mg/dL (35-150)
[2024-12-14 13:27] LABS: TSH w/ Reflex to FT4 1.42 uIU/mL (0.47-4.68)
[2024-12-14 13:46] LABS: Vitamin B12 > 1000 pg/mL (239-931)
[2024-12-14 15:00] LABS: Vitamin D 25 Hydroxy (D3) 43.9 ng/mL (30.0-100.0)
== END ==
PROVIDERS: Family Provider Family Medicine; PCP Family Medicine; Referring Provider Family Medicine; Visit Provider Family Medicine
DX: G43.909 Migraine, unspecified, not intractable, without status migrainosus (principal); F41.9 Anxiety disorder, unspecified; E66.9 Obesity, unspecified; G47.33 Obstructive sleep apnea (adult) (pediatric); R53.83 Other fatigue; E55.9 Vitamin D deficiency, unspecified; E88.810 Metabolic syndrome
CPT/HCPCS: 36415; 80053; 80061; 82306; 82607; 83036; 84207; 84443; 85025